=== PATIENT | male | born 1935 | race Caucasian/White ===

== ENCOUNTER 2017-08-15 21:43 | Emergency (ER) | payer MEDICARE, OTHER, SELFPAY ==
[2017-08-15 21:54] VITALS: BP 164/54; PULSE 81; RESP 18; O2SAT 98
[2017-08-15 21:59] VITALS: PULSE 81; RESP 18; O2SAT 98; BMI 27.4
--- NOTE | 2017-08-15 22:31 | ED_ITS ---
HPI - Back Pain/Injury General Chief Complaint: Back Pain/Injury Stated Complaint: BACK PAIN Time Seen by Provider: 08/15/17 22:31 Source: patient and family (Daughter) Mode of arrival: ambulatory Limitations: no limitations History of Present Illness HPI Narrative: The patient has chronic back pain. He has previously undergone lumbar surgery. He takes Tylenol Extra Strength for back pain. He is here with ongoing back pain, he is receiving no relief from the Tylenol. With the back pain there is no bladder or bowel incontinence. He has no lower extremity numbness or weakness. He has had no fever or other escalation of symptoms, other than pain. Related Data Home Medications Medication Instructions Recorded Confirmed potassium QDAY #0 04/30/17 07/19/17 Previous Rx's Medication Instructions Recorded fluoxetine 20 mg PO Q DAY #90 tab 02/04/17 furosemide [Lasix] 80 mg PO QDAY #5 tab 04/30/17 tramadol 2 tab PO BID #120 tab 04/30/17 ondansetron [Zofran ODT] 4 mg SUBLINGUAL Q6HP PRN #20 odt 06/15/17 donepezil 10 mg tablet 10 mg PO HS #90 tab 07/02/17 hydrocodone-acetaminophen [[place]] 1 tab PO Q4H PRN #15 tab 08/16/17 ondansetron [Zofran ODT] 4 mg PO Q6H PRN #15 tab 08/16/17 Allergies Allergy/AdvReac Type Severity Reaction Status Date / Time Sulfa (Sulfonamide AdvReac Intermediate hallucinati Verified 07/19/17 19:03 Antibiotics) ons zolpidem AdvReac Intermediate mood Verified 07/19/17 19:03 changes, makes him mean, confusion gabapentin AdvReac Mild I lose my Verified 07/19/17 19:03 memory Review of Systems Review of Systems All systems reviewed & are unremarkable except as noted in HPI and below Constitutional Denies chills, Denies fever(s) and Denies lethargy ENT Ears, Nose, Mouth, and Throat: Denies neck pain and Denies sore throat Cardiovascular Denies chest pain and Denies dyspnea Respiratory Denies dyspnea Gastrointestinal Gastrointestinal: Denies fecal incontinence, Denies diarrhea, Denies nausea and Denies vomiting Genitourinary Denies dysuria, Denies urinary incontinence and Denies urinary urgency Musculoskeletal Reports as per HPI, Denies neck pain and Denies numbness Integumentary/Breasts Denies pruritus, Denies erythema, Denies rash and Denies wounds Neurologic Denies focal weakness and Denies numbness [facility] Medical History Back pain (Acute) Dementia (Acute) Surgical History History of lumbar surgery (Acute) Social History Smoking Status: Former smoker Exam Initial Vital Signs Initial Vital Signs: Vital Signs Pulse Rate 81 08/15/17 21:54 Respiratory Rate 18 08/15/17 21:54 Blood Pressure 164/54 H 08/15/17 21:54 Pulse Oximetry 98 08/15/17 21:54 Const General: cooperative and well developed Nutritional Appearance: well nourished Orientation: alert, awake, oriented x3 and not confused HENMT Head: normocephalic and atraumatic Ears: external ears normal and TM's normal bilaterally Nose: external nose normal and No nasal discharge Face and sinus: sinuses nontender, face symmetric, no sinus tenderness and No dry mucous membranes Mouth: oral mucosae normal and moist mucous membranes Teeth and gingiva: dentition normal Throat: tonsils normal and uvula midline Neck Neck: full ROM and No tender Chest Chest: normal inspection of the chest Resp Effort & Inspection: normal respiratory effort, able to speak in complete sentences, no respiratory distress and no use of accessory muscles Auscultation: clear to auscultation bilaterally, no rales, no rhonchi and no wheezes Cardio Rate: regular rate Rhythm: regular rhythm Heart Sounds: no click, no gallops, no murmurs and no rubs Pulses: normal peripheral pulses GI Inspection: non-distended Palpation: soft, no hepatosplenomegaly, No guarding, No pulsatile mass and tender (In the right upper quadrant.) Auscultation: normal bowel sounds Back/Spine/Pelvis Thoracic/Lumbar Spine: other (Palpable tenderness over the central lower lumbar spine. No obvious deformity, no inflammatory changes.) Course Hospital Course: His daughter was concerned about his liver, she is concerned about how much Tylenol he uses. His Tylenol level and liver tests are normal. He has had no relief from tramadol. He will be discharged to home with [place]. He has occasional vomiting, Zofran will also be available. Orders Ordered: ED Orders 08/15/17 23:14 Acetaminophen Stat Complete Blood Count AUTO DIFF Stat Comprehensive Metabolic Panel Stat Lipase Stat Prothrombin Time INR Stat Sodium Chloride (Normal Saline 0.9%) 1,000 mls @ 150 mls/hr IV CONT HEATHER Last Admin: 08/15/17 23:13 Dose: Discontinued Medications Sodium Chloride (Normal Saline 0.9%) 1,000 mls @ 1,000 mls/hr IV BOLUS ONE Stop: 08/15/17 23:39 Last Admin: 08/15/17 23:12 Dose: 1,000 mls/hr Morphine Sulfate (Morphine) 4 mg IV NOW ONE Stop: 08/16/17 00:09 Last Admin: 08/16/17 00:16 Dose: 4 mg Ondansetron HCl (Zofran) 4 mg IV NOW ONE Stop: 08/15/17 22:41 Last Admin: 08/15/17 23:12 Dose: 4 mg Tramadol HCl (Ultram) 50 mg PO NOW ONE Stop: 08/15/17 22:53 Last Admin: 08/15/17 23:12 Dose: 50 mg Vital Signs - 8 hr 08/15/17 21:54 08/15/17 21:59 08/15/17 23:00 Pulse Rate 81 81 78 Respiratory Rate 18 18 Blood Pressure [Left Arm] 164/54 H 148/53 H Pulse Oximetry 98 98 96 MDM - Back Pain/Injury Lab Data Attestation: I reviewed the patient's lab results. Result diagrams: 08/15/17 23:14 08/15/17 23:14 Lab Results 08/15/17 08/15/17 08/15/17 Range/Units 23:14 23:14 23:14 WBC 10.5 (4.5-11.0) X10^3/uL RBC 3.96 L (4.5-5.9) X10^6/uL Hgb 13.5 (13.5-17.5) g/dL Hct 40.2 L (41-53) % MCV 101.5 H (80-100) fL MCH 34.1 H (26-34) PG MCHC 33.6 (30-36) % RDW 16.1 H (11.6-14.8) % Plt Count 288 (150-400) X10^3/uL Neut % (Auto) 85.1 H (50-75) % Lymph % (Auto) 8.7 L (25-40) % [place] % (Auto) 5.8 (3-14) % Eos % (Auto) 0.1 L (2-4) % Baso % (Auto) 0.3 (0-2) % Neut # (Auto) 8900 H (3019-3686) /uL PT 11.6 (10.1-12.7) SECONDS INR 1.1 (0.9-1.3) Sodium (137-145) mmol/L Potassium (3.4-5.1) mmol/L Chloride (98-107) mmol/L Carbon Dioxide (22-32) mmol/L BUN (9-20) mg/dL Creatinine (0.66-1.25) mg/dL Estimated GFR (>60) mL/min BUN/Creatinine Ratio (6-22) Glucose (80-110) mg/dL Calcium (8.4-10.2) mg/dL Total Bilirubin (0.2-1.3) mg/dL AST (17-59) IU/L ALT (21-72) IU/L Alkaline Phosphatase (38-126) U/L Total Protein (6.3-8.2) g/dL Albumin (3.5-5.0) g/dL Globulin (1.7-4.1) g/dL Albumin/Globulin Ratio (1.0-2.8) Lipase (23-300) U/L Acetaminophen 16 (10-30) ug/mL /14/18 Range/Units 23:14 WBC (4.5-11.0) X10^3/uL RBC (4.5-5.9) X10^6/uL Hgb (13.5-17.5) g/dL Hct (41-53) % MCV (80-100) fL MCH (26-34) PG MCHC (30-36) % RDW (11.6-14.8) % Plt Count (150-400) X10^3/uL Neut % (Auto) (50-75) % Lymph % (Auto) (25-40) % [place] % (Auto) (3-14) % Eos % (Auto) (2-4) % Baso % (Auto) (0-2) % Neut # (Auto) (1389-8124) /uL PT (10.1-12.7) SECONDS INR (0.9-1.3) Sodium 134 L (137-145) mmol/L Potassium 4.2 (3.4-5.1) mmol/L Chloride 103 (98-107) mmol/L Carbon Dioxide 12 L (22-32) mmol/L BUN 36 H (9-20) mg/dL Creatinine 1.40 H (0.66-1.25) mg/dL Estimated GFR 48.5 L (>60) mL/min BUN/Creatinine Ratio 25.7 H (6-22) Glucose 101 (80-110) mg/dL Calcium 9.3 (8.4-10.2) mg/dL Total Bilirubin 0.9 (0.2-1.3) mg/dL AST 21 (17-59) IU/L ALT 24 (21-72) IU/L Alkaline Phosphatase 42 (38-126) U/L Total Protein 7.1 (6.3-8.2) g/dL Albumin 3.9 (3.5-5.0) g/dL Globulin 3.2 (1.7-4.1) g/dL Albumin/Globulin Ratio 1.2 (1.0-2.8) Lipase 226 (23-300) U/L Acetaminophen (10-30) ug/mL Discharge Plan Departure Patient Disposition: Home, Self-Care Clinical Impression: Low back pain Instructions: DI for Low Back Pain Activity Restrictions/Additional Instructions: Tylenol extra-strength, 2 tablets every 6 hours for pain. [place] every 4-6 hours for added pain control when necessary. Zofran every 4 hours as needed for nausea control. Be sure you are drinking plenty of fluids and stay well hydrated. Follow up with your doctor for ongoing pain management. Prescriptions: New ondansetron [Zofran ODT] 4 mg tablet,disintegrating 4 mg PO Q6H PRN (Reason: nausea and vomiting) Qty: 15 RF: 0 hydrocodone-acetaminophen [[place]] 5-325 mg tablet 1 tab PO Q4H PRN (Reason: pain) Qty: 15 RF: 0 No Action fluoxetine 20 MG tablet 20 mg PO Q DAY Qty: 90 RF: 3 potassium 99 mg Tablet QDAY Qty: 0 RF: 0 furosemide [Lasix] 20 MG tablet 80 mg PO QDAY Qty: 5 RF: 0 tramadol 50 MG tablet 2 tab PO BID Qty: 120 RF: 3 ondansetron [Zofran ODT] 4 MG tablet,disintegrating 4 mg Sublingual Q6HP PRNQty: 20 RF: 0 donepezil [Aricept] 10 mg tablet 10 mg PO HS Qty: 90 RF: 3
[2017-08-15 23:00] VITALS: BP 148/53; PULSE 78; O2SAT 96
[2017-08-15] MEDS: SODIUM CHLORIDE 0.9% 1,000 ML 1000 ML IV (23:12)
[2017-08-15] MEDS: ONDANSETRON 4 MG/2 ML INJ IV (23:12)
[2017-08-15] MEDS: TRAMADOL 50 MG TABLET PO (23:12)
[2017-08-15 23:17] LABS: Add Manual Diff / Slide Review NO; Basophils Percent Auto 0.3 % (0-2); Eosinophils Percent Auto 0.1 % (2-4); Hematocrit 40.2 % (41-53); Hemoglobin 13.5 g/dL (13.5-17.5); Lymphocytes Percent Auto 8.7 % (25-40); Mean Corpuscular HGB Conc 33.6 % (30-36); Mean Corpuscular Hemoglobin 34.1 PG (26-34); Mean Corpuscular Volume 101.5 fL (80-100); Monocytes Percent Auto 5.8 % (3-14); Neutrophils Absolute Auto 8900 /uL (3000-5900); Neutrophils Percent Auto 85.1 % (50-75); Platelet Count 288 X10^3/uL (150-400); Red Blood Cell Count 3.96 X10^6/uL (4.5-5.9); Red Cell Distribution Width 16.1 % (11.6-14.8); White Blood Cell Count 10.5 X10^3/uL (4.5-11.0)
[2017-08-15 23:22] LABS: INR 1.1 (0.9-1.3); Prothrombin Time 11.6 SECONDS (10.1-12.7)
[2017-08-15 23:28] LABS: Alanine Aminotransferase 24 IU/L (21-72); Albumin 3.9 g/dL (3.5-5.0); Albumin Globulin Ratio 1.2 (1.0-2.8); Alkaline Phosphatase 42 U/L (38-126); Aspartate Aminotransferase 21 IU/L (17-59); BUN Creatinine Ratio 25.7 (6-22); Bilirubin Total 0.9 mg/dL (0.2-1.3); Blood Urea Nitrogen 36 mg/dL (9-20); Calcium 9.3 mg/dL (8.4-10.2); Carbon Dioxide 12 mmol/L (22-32); Chloride 103 mmol/L (98-107); Estimated Glomerular Filt Rate 48.5 mL/min (>60); Globulin 3.2 g/dL (1.7-4.1); Glucose 101 mg/dL (80-110); HEMOLYSIS < 15 (0-50); Potassium 4.2 mmol/L (3.4-5.1); Sodium 134 mmol/L (137-145); Total Protein 7.1 g/dL (6.3-8.2)
[2017-08-15 23:29] LABS: Lipase 226 U/L (23-300)
[2017-08-15 23:30] LABS: Acetaminophen 16 ug/mL (10-30)
[2017-08-16] MEDS: MORPHINE 4 MG/ML INJ IV ×2 (00:16→00:52)
[2017-08-16 00:55] VITALS: BP 142/59; PULSE 88; RESP 14; O2SAT 98
== END 2017-08-16 01:23 | disposition home or self-care (01) ==
PROVIDERS: Emergency Provider Emergency Medicine; Family Provider Family Medicine; PCP Family Medicine
DX: M54.5 Low back pain (principal)
CPT/HCPCS: 36415; 80053; 80329; 83690; 85025; 85610; 96361; 96374; 96375; 99283; 99284; G0480; J2270; J2405

== ENCOUNTER 2017-08-19 13:28 | Emergency (ER) | payer MEDICARE, OTHER, SELFPAY ==
[2017-08-19 13:40] VITALS: BP 138/60; PULSE 84; RESP 14; O2SAT 98
--- NOTE | 2017-08-19 13:47 | ED_ITS ---
HPI - Weakness General Chief complaint: Weakness Stated complaint: WEAK,NOT EATING/FLUIDS,BACK PAIN Time Seen by Provider: 08/19/17 13:46 Source: patient and family Mode of arrival: ambulatory Limitations: no limitations History of Present Illness HPI Narrative: 82-year-old male with a history of heart failure, dementia, chronic low back pain, and depression presenting with 1-2 weeks of increasing weakness, somnolence, and increasing back pain. He was prescribed [place] 4 days ago at an ER visit and his and daughter who are present at this time notes that it has not been helping his pain. 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 His daughter and feel that he needs to be hospitalized because he will not eat or drink and they are having difficulty caring for him at home. Nothing is relieving his back pain. He had a steroid injection recently with his neurosurgeon that has not provided any relief. He also recently had removal of hardware in the low back which was done to hopefully improve his pain , but unfortunately did not help. He has made comments to them that he thinks he will soon. He has not had fever or chills. He has not had a cough. He sleeps the majority of the day. Family denies any focal weakness. His memory is no worse or better than usual on his Aricept. He sees Dr. teixeira and when they called Dr. teixeira nurse, it was suggested to them that they come to the ER. Related Data Home Medications Medication Instructions Recorded Confirmed furosemide 80 mg PO DAILY 08/19/17 08/19/17 potassium chloride 20 meq PO DAILY 08/19/17 08/19/17 Previous Rx's Medication Instructions Recorded fluoxetine 20 mg PO Q DAY #90 tab 02/04/17 donepezil 10 mg tablet 10 mg PO HS #90 tab 07/02/17 hydrocodone-acetaminophen [[place]] 1 tab PO Q4H PRN #15 tab 08/16/17 ondansetron [Zofran ODT] 4 mg PO Q6H PRN #15 tab 08/16/17 Allergies Allergy/AdvReac Type Severity Reaction Status Date / Time Sulfa (Sulfonamide AdvReac Intermediate hallucinati Verified 07/19/17 19:03 Antibiotics) ons zolpidem AdvReac Intermediate mood Verified 07/19/17 19:03 changes, makes him mean, confusion gabapentin AdvReac Mild I lose my Verified 07/19/17 19:03 memory Review of Systems Review of Systems unobtainable due to mental condition [facility] Medical History Back pain (Acute) Dementia (Acute) Surgical History History of lumbar surgery (Acute) Social History Smoking Status: Former smoker Exam Initial Vital Signs Initial Vital Signs: Vital Signs Pulse Rate 84 08/19/17 13:40 Respiratory Rate 14 08/19/17 13:40 Blood Pressure 138/60 H 08/19/17 13:40 Pulse Oximetry 98 08/19/17 13:40 Const General: cooperative and well developed Nutritional Appearance: well nourished Orientation: alert, awake and not confused HENTX Head: normocephalic and atraumatic Ears: external ears normal and TM's normal bilaterally Nose: external nose normal and No nasal discharge Face and sinus: sinuses nontender, face symmetric, no sinus tenderness and No dry mucous membranes Mouth: oral mucosae normal and moist mucous membranes Teeth and gingiva: dentition normal Throat: tonsils normal and uvula midline Eyes General: appearance normal, both eyes and all related structures Eyelids: eyelids normal Conjunctivae: conjunctivae normal Sclera: sclerae normal Pupils: PERRL EOM: EOM intact bilaterally Neck Neck: normal visual inspection, trachea midline, No lymphadenopathy, No midline deformity and No JVD Lymphatic: No lymphedema Chest Chest: normal inspection of the chest Resp Effort & Inspection: normal respiratory effort, able to speak in complete sentences, no respiratory distress and no use of accessory muscles Auscultation: no rales, rhonchi and wheezes Cardio Rate: regular rate Rhythm: regular rhythm Heart Sounds: murmur Pulses: normal peripheral pulses GI Inspection: non-distended Palpation: soft, no hepatosplenomegaly, No guarding, No pulsatile mass and No tender Auscultation: normal bowel sounds Back/Spine/Pelvis Back: No CVA tenderness Cervical Spine: cervical ROM normal and No pain with cervical ROM Thoracic/Lumbar Spine: thoracic and lumbar spine normal to inspection Skin General: no rashes or lesions noted, No jaundice and No petechiae Neuro General: alert, gait normal and no focal motor deficits Speech: speech normal Extrem General: full ROM, no clubbing, cyanosis or edema, no pedal edema and no calf tenderness Psych Appearance: well kempt Mental Status: mental status grossly normal Attitude: cooperative Thought Content: normal and suicidality Judgment: judgment good Course Orders Ordered: ED Orders 08/19/17 13:54 Ammonia (NH3) Stat Complete Blood Count AUTO DIFF Stat Comprehensive Metabolic Panel Stat Thyroid Stimulating Hormone Stat Troponin I Stat 08/19/17 14:04 EKG-12 Lead Stat 08/19/17 14:06 XR chest 1V Stat 08/19/17 14:18 CT head/brain wo con Stat 08/19/17 15:30 Urine Microscopic Routine Discontinued Medications Acetaminophen (Tylenol) 650 mg PO NOW ONE Stop: 08/19/17 15:01 Last Admin: 08/19/17 15:09 Dose: 650 mg Reevaluation(s) Reevaluation #1: Patient has not had significant pain here but did receive some Tylenol at his request. I reviewed CT scan, chest x-ray, urinalysis, EKG, and blood work with patient, his , and his daughter. There is no acute abnormalities causing his weakness,. His heart is enlarged and in heart failure , but appears unchanged. I do not see fluid in the lungs. He does not appear dehydrated based on blood work and in fact his creatinine is better than previous. His troponin is slightly elevated but better than previous, and most likely related to chronic congestive heart failure as well as his report chronic kidney disease. He is not having chest pain or shortness of breath at this time. Consultations Consultation #1: Discussed care with his primary care provider who will see him on at 3:45 a.m.. Agrees that there is no need for admit at this time Time: 16:46 Vital Signs - 8 hr 08/19/17 13:40 08/19/17 14:57 Pulse Rate 84 85 Respiratory Rate 14 16 Blood Pressure 138/60 H Blood Pressure [Right Arm] 138/57 H Pulse Oximetry 98 98 MDM - Weakness Medical Records Attestation: I reviewed the patient's medical records. Lab Data Attestation: I reviewed the patient's lab results. Result diagrams: 08/19/17 13:54 08/19/17 13:54 Lab Results 08/19/17 08/19/17 08/19/17 Range/Units 13:54 13:54 13:54 WBC 8.7 (4.5-11.0) X10^3/uL RBC 4.13 L (4.5-5.9) X10^6/uL Hgb 14.1 (13.5-17.5) g/dL Hct 42.2 (41-53) % MCV 102.2 H (80-100) fL MCH 34.1 H (26-34) PG MCHC 33.4 (30-36) % RDW 17.2 H (11.6-14.8) % Plt Count 366 (150-400) X10^3/uL Neut % (Auto) 76.2 H (50-75) % Lymph % (Auto) 15.0 L (25-40) % [place] % (Auto) 7.6 (3-14) % Eos % (Auto) 0.7 L (2-4) % Baso % (Auto) 0.5 (0-2) % Neut # (Auto) 6600 H (8120-1037) /uL Sodium 139 (137-145) mmol/L Potassium 4.8 (3.4-5.1) mmol/L Chloride 104 (98-107) mmol/L Carbon Dioxide 18 L (22-32) mmol/L BUN 33 H (9-20) mg/dL Creatinine 1.20 (0.66-1.25) mg/dL Estimated GFR 58.0 L (>60) mL/min BUN/Creatinine Ratio 27.5 H (6-22) Glucose 118 H (80-110) mg/dL Calcium 9.8 (8.4-10.2) mg/dL Total Bilirubin 0.9 (0.2-1.3) mg/dL AST 29 (17-59) IU/L ALT 26 (21-72) IU/L Alkaline Phosphatase 58 (38-126) U/L Ammonia (9-30) umol/L Troponin I 0.092 H (0.01-0.034) ng/mL Total Protein 8.0 (6.3-8.2) g/dL Albumin 4.4 (3.5-5.0) g/dL Globulin 3.6 (1.7-4.1) g/dL Albumin/Globulin Ratio 1.2 (1.0-2.8) TSH 0.48 (0.47-4.68) uIU/mL Urine RBC (0-5/HPF) Urine WBC (0-5/HPF) Ur Squamous Epith Cells Amorphous Sediment Urine Bacteria (None) Hyaline Casts (None) Urine Mucus (Negative) Ur Culture Indicated? Micro UA Comment 08/19/17 08/19/17 Range/Units 13:54 15:30 WBC (4.5-11.0) X10^3/uL RBC (4.5-5.9) X10^6/uL Hgb (13.5-17.5) g/dL Hct (41-53) % MCV (80-100) fL MCH (26-34) PG MCHC (30-36) % RDW (11.6-14.8) % Plt Count (150-400) X10^3/uL Neut % (Auto) (50-75) % Lymph % (Auto) (25-40) % [place] % (Auto) (3-14) % Eos % (Auto) (2-4) % Baso % (Auto) (0-2) % Neut # (Auto) (8007-9125) /uL Sodium (137-145) mmol/L Potassium (3.4-5.1) mmol/L Chloride (98-107) mmol/L Carbon Dioxide (22-32) mmol/L BUN (9-20) mg/dL Creatinine (0.66-1.25) mg/dL Estimated GFR (>60) mL/min BUN/Creatinine Ratio (6-22) Glucose (80-110) mg/dL Calcium (8.4-10.2) mg/dL Total Bilirubin (0.2-1.3) mg/dL AST (17-59) IU/L ALT (21-72) IU/L Alkaline Phosphatase (38-126) U/L Ammonia < 9.0 L (9-30) umol/L Troponin I (0.01-0.034) ng/mL Total Protein (6.3-8.2) g/dL Albumin (3.5-5.0) g/dL Globulin (1.7-4.1) g/dL Albumin/Globulin Ratio (1.0-2.8) TSH (0.47-4.68) uIU/mL Urine RBC None seen (0-5/HPF) Urine WBC 0-1/hpf (0-5/HPF) Ur Squamous Epith Cells 0-1 /hpf Amorphous Sediment 1+ Urine Bacteria None seen (None) Hyaline Casts 0-1/lpf (None) Urine Mucus 1+ H (Negative) Ur Culture Indicated? Cult not indicated Micro UA Comment Not Reportable Imaging Data Chest x-ray: Radiologist's impression: PROCEDURE: XR CHEST 1V INDICATIONS: ams, weakness TECHNIQUE: One view of the chest was acquired. COMPARISON: [facility], , CHEST 1 VIEW, 03/16/2017, 15:31. [facility], , CHEST 1 VIEW, 04/22/2017, 6:45. FINDINGS: Surgical changes and devices: None. Lungs and pleura: No pleural effusions or pneumothorax. Lungs are clear. Mediastinum: Mediastinal contours appear normal. Heart size is moderate to severely enlarged. Bones and chest wall: No suspicious bony lesions. Overlying soft tissues appear unremarkable. IMPRESSION: 1. [id number] cardiomegaly. Dictated by: Ana Genao M.D. on 08/19/2017 at 15:24 Approved by: Ana Genao M.D. on 08/19/2017 at 15:25 CT scan - head: Radiologist's impression: PROCEDURE: CT HEAD/BRAIN WO CON INDICATIONS: ams, weaknesss TECHNIQUE: Noncontrast 4.5 mm thick angled axial sections acquired from the foramen magnum to the vertex, with coronal and sagittal reformats. For radiation dose reduction, the following was used: automated exposure control, adjustment of mA and/or kV according to patient size. COMPARISON: [facility], CT, HEAD WITHOUT CONTRAST, 05/19/2016, 19:27. FINDINGS: Image quality: Excellent. CSF spaces: Basal cisterns are patent. No extra-axial fluid collections. The ventricles are dilated but symmetric in size and shape. Brain: No intracranial bleeds or masses. Small lacunar infarcts in the left external capsule/basal ganglia. There is cerebral volume loss for age, with resultant ventricular and sulcal prominence. There are periventricular and deep white matter chronic small vessel ischemic changes. There is intracranial internal carotid artery and vertebral artery atherosclerosis. Skull and face: Calvarium and visualized facial bones appear intact, without suspicious lesions. Sinuses: Visualized sinuses and mastoids are clear. IMPRESSION: 1. No acute intracranial abnormalities. 2. Cerebral volume loss and chronic microvascular ischemic changes. 3. 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 4. Ventricular dilation is out of proportion to mildly prominent cerebral sulci. This finding may be secondary to central atrophy or normal pressure hydrocephalus. Dictated by: Ana Genao M.D. on 08/19/2017 at 14:25 Approved by: Ana Genao M.D. on 08/19/2017 at 14:29 ECG Data Attestation: I personally reviewed and interpreted this ECG as follows: Prior ECG tracings: available for review Interpretation: EKG performed at 1447 shows ectopic atrial rhythm, right bundle branch block, left ventricular hypertrophy, no ST elevation or depression noted. When compared with EKG from 04/22/2017 LVH criteria more prominent. MDM Narrative Medical decision making narrative: Patient has no acute intracranial findings on CT scan of the head although old strokes are noted. Family was surprised to find out about these. He does have significant atrophy consistent with his Alzheimer's dementia. His heart is enlarged consistent with his valvular disease and he is not a surgical candidate. He does not appear fluid overloaded or dehydrated. His vitals are stable. EKG shows no new findings. Troponin is slightly elevated but better than previous. Most likely related to chronic kidney disease and congestive heart failure chronically as he does not have chest pain or shortness of breath today. He does not appear to have uncontrolled back pain and has no tenderness to palpation. He is able to sit without any obvious discomfort. Labs show no evidence of infection or significant electrolyte imbalances. His urinalysis is negative for infection. Chest x-ray does not show evidence of infection. Overall I do not appreciate any cause for his anorexia that he has experienced the past 1-2 weeks. I do not feel he meets admission criteria and discussed with his primary care who will see him on . All family's questions were answered. Discharge Plan Departure Patient Disposition: Home, Self-Care Clinical Impression: Weakness, Anorexia Instructions: Anorexia-Adult Activity Restrictions/Additional Instructions: Thank you for trusting us with your 's care today. No new or dangerous findings were noted on his evaluation. Please follow up with his primary care provider. I have arranged an appointment for him at 3:45 a.m. on , . Return to the ER for new or worsening symptoms. Continue to encourage him to eat. Prescriptions: No Action fluoxetine 20 MG tablet 20 mg PO Q DAY Qty: 90 RF: 3 donepezil [Aricept] 10 mg tablet 10 mg PO HS Qty: 90 RF: 3 ondansetron [Zofran ODT] 4 mg tablet,disintegrating 4 mg PO Q6H PRN (Reason: nausea and vomiting) Qty: 15 RF: 0 hydrocodone-acetaminophen [[place]] 5-325 mg tablet 1 tab PO Q4H PRN (Reason: pain) Qty: 15 RF: 0 furosemide 80 mg tablet 80 mg PO DAILY RF: 0 potassium chloride 20 mEq tablet extended release 20 meq PO DAILY RF: 0
--- NOTE | 2017-08-19 14:06 | DI.RAD.S_ITS ---
PROCEDURE: XR CHEST 1V INDICATIONS: ams, weakness TECHNIQUE: One view of the chest was acquired. COMPARISON: [facility], CHEST 1 VIEW, 03/16/2017, 15:31. [facility], CHEST 1 VIEW, 04/22/2017, 6:45. FINDINGS: Surgical changes and devices: None. Lungs and pleura: No pleural effusions or pneumothorax. Lungs are clear. Mediastinum: Mediastinal contours appear normal. Heart size is moderate to severely enlarged. Bones and chest wall: No suspicious bony lesions. Overlying soft tissues appear unremarkable. IMPRESSION: 1. [id number] cardiomegaly. Dictated by: Ana Genao M.D. on 08/19/2017 at 15:24 Approved by: Ana Genao M.D. on 08/19/2017 at 15:25
[2017-08-19 14:14] LABS: Add Manual Diff / Slide Review NO; Basophils Percent Auto 0.5 % (0-2); Eosinophils Percent Auto 0.7 % (2-4); Hematocrit 42.2 % (41-53); Hemoglobin 14.1 g/dL (13.5-17.5); Mean Corpuscular HGB Conc 33.4 % (30-36); Mean Corpuscular Hemoglobin 34.1 PG (26-34); Mean Corpuscular Volume 102.2 fL (80-100); Monocytes Percent Auto 7.6 % (3-14); Neutrophils Absolute Auto 6600 /uL (3000-5900); Neutrophils Percent Auto 76.2 % (50-75); Platelet Count 366 X10^3/uL (150-400); Red Blood Cell Count 4.13 X10^6/uL (4.5-5.9); Red Cell Distribution Width 17.2 % (11.6-14.8); White Blood Cell Count 8.7 X10^3/uL (4.5-11.0)
--- NOTE | 2017-08-19 14:18 | DI.CT.S_ITS ---
PROCEDURE: CT HEAD/BRAIN WO CON INDICATIONS: ams, weaknesss TECHNIQUE: Noncontrast 4.5 mm thick angled axial sections acquired from the foramen magnum to the vertex, with coronal and sagittal reformats. For radiation dose reduction, the following was used: automated exposure control, adjustment of mA and/or kV according to patient size. COMPARISON: [facility], CT, HEAD WITHOUT CONTRAST, 05/19/2016, 19:27. FINDINGS: Image quality: Excellent. CSF spaces: Basal cisterns are patent. No extra-axial fluid collections. The ventricles are dilated but symmetric in size and shape. Brain: No intracranial bleeds or masses. Small lacunar infarcts in the left external capsule/basal ganglia. There is cerebral volume loss for age, with resultant ventricular and sulcal prominence. There are periventricular and deep white matter chronic small vessel ischemic changes. There is intracranial internal carotid artery and vertebral artery atherosclerosis. Skull and face: Calvarium and visualized facial bones appear intact, without suspicious lesions. Sinuses: Visualized sinuses and mastoids are clear. IMPRESSION: 1. No acute intracranial abnormalities. 2. Cerebral volume loss and chronic microvascular ischemic changes. 3. 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 4. Ventricular dilation is out of proportion to mildly prominent cerebral sulci. This finding may be secondary to central atrophy or normal pressure hydrocephalus. Dictated by: Ana Genao M.D. on 08/19/2017 at 14:25 Approved by: Ana Genao M.D. on 08/19/2017 at 14:29
[2017-08-19 14:19] LABS: Alanine Aminotransferase 26 IU/L (21-72); Albumin 4.4 g/dL (3.5-5.0); Albumin Globulin Ratio 1.2 (1.0-2.8); Alkaline Phosphatase 58 U/L (38-126); Aspartate Aminotransferase 29 IU/L (17-59); BUN Creatinine Ratio 27.5 (6-22); Bilirubin Total 0.9 mg/dL (0.2-1.3); Blood Urea Nitrogen 33 mg/dL (9-20); Calcium 9.8 mg/dL (8.4-10.2); Carbon Dioxide 18 mmol/L (22-32); Chloride 104 mmol/L (98-107); Globulin 3.6 g/dL (1.7-4.1); Glucose 118 mg/dL (80-110); HEMOLYSIS 26 (0-50); Potassium 4.8 mmol/L (3.4-5.1); Sodium 139 mmol/L (137-145)
[2017-08-19 14:20] LABS: Ammonia (NH3) < 9.0 umol/L (9-30)
[2017-08-19 14:31] LABS: Troponin I 0.092 ng/mL (0.01-0.034)
[2017-08-19 14:53] LABS: Thyroid Stimulating Hormone 0.48 uIU/mL (0.47-4.68)
[2017-08-19 14:57] VITALS: BP 138/57; PULSE 85; RESP 16; O2SAT 98
[2017-08-19] MEDS: ACETAMINOPHEN 325 MG TABLET 650 MG PO (15:09)
[2017-08-19 15:42] LABS: Bacteria Urine None Seen; RBC Urine None Seen (0-5/HPF)
[2017-08-19 15:52] LABS: Amorphous Sediment Urine 1+; Squamous Epithelial Cell Urine 0-1 /HPF; WBC Urine 0-1/HPF (0-5/HPF)
[2017-08-19 15:53] LABS: Culture Indicated Urine Cult Not Indicated; Hyaline Casts Urine 0-1/LPF; Mucus Urine 1+ (Negative)
[2017-08-19 16:47] VITALS: BP 141/54; PULSE 75; RESP 16
[2017-08-19 17:01] VITALS: BP 136/57; PULSE 84; RESP 18; O2SAT 100
[2017-08-19 17:13] VITALS: BP 136/57; PULSE 83; RESP 18; O2SAT 98
== END 2017-08-19 17:15 | disposition home or self-care (01) ==
PROVIDERS: Emergency Provider Emergency Medicine; Family Provider Family Medicine; PCP Family Medicine
DX: R63.0 Anorexia (principal); R53.1 Weakness; F03.90 Unspecified dementia, unspecified severity, without behavioral disturbance, psychotic disturbance, mood disturbance, and anxiety
CPT/HCPCS: 70450; 71045; 80053; 81003; 81015; 82140; 84443; 84484; 85025; 93005; 93010; 99283; 99285

== ENCOUNTER → 2017-08-26 14:33 | Outpatient (CLI) | payer MEDICARE, OTHER, SELFPAY ==
--- NOTE | 2017-08-26 14:35 | DI.CT.S_ITS ---
PROCEDURE: CT ABDOMEN PELVIS W CON INDICATIONS: Nausea, anorexia, weakness TECHNIQUE: After the administration of oral and intravenous contrast, 5 mm thick sections acquired from the diaphragms to the symphysis. 5 mm thick coronal and sagittal reformats were performed. For radiation dose reduction, the following was used: automated exposure control, adjustment of mA and/or kV according to patient size. COMPARISON: [facility], CT, ABDOMEN/PELVIS WITH CONTRAST, 09/13/2015, 10:52. FINDINGS: Image quality: Excellent. ABDOMEN: Lung bases: Lung bases are clear. Heart size is enlarged, as before. Solid organs: Liver is normal in size. The liver is diffusely hypodense suggesting hepatic steatosis.. Gallbladder is unremarkable. Biliary system is non-dilated. There is fatty atrophy of the pancreas. Spleen is normal in size and enhancement. No adrenal nodules. Kidneys are normal in size and enhancement, without hydronephrosis. A 1.4 cm in diameter intermediate density cyst is present off the lower pole of the right kidney which is similar in size to the study dated 09/13/15. Peritoneum and bowel: Stomach, small bowel, and colon loops are normal in overall caliber and wall thickness. There is marked circumferential wall thickening of the cecum. The appendix is thin walled. No discrete pericecal fat stranding or free fluid. There are scattered sigmoid diverticula. No evidence for diverticulitis. No free fluid or air. Nodes and vessels: No retroperitoneal or mesenteric adenopathy. Aorta and inferior vena cava are normal in caliber. There are scattered atheromatous calcifications throughout the aorta and iliac arteries bilaterally. Miscellaneous: No ventral hernias. PELVIS: Genitourinary: Bladder wall thickness is normal. Miscellaneous: No inguinal adenopathy. There are small bilateral fat containing inguinal hernias. Bones: No suspicious bony lesions. No vertebral body compression fractures. Fixation hardware at the right sacroiliac joint and lumbosacral junction is redemonstrated and appears intact. IMPRESSION: 1. Circumferential wall thickening of the distal cecum. There is no associated pericolonic fat stranding or free fluid. The findings are equivocal for acute colitis; however early colitis could be considered in the differential. Colonoscopy with visualization of the cecum is recommended as well to ensure there is no underlying neoplasm. 2. Normal appendix. Diverticulosis. No acute diverticulitis. 3. Hepatic steatosis. Dictated by: Kathleen Munoz M.D. on 08/26/2017 at 15:12 Approved by: Kathleen Munoz M.D. on 08/26/2017 at 15:28
== END ==
PROVIDERS: Family Provider Family Medicine; PCP Family Medicine; Visit Provider Family Medicine
DX: R11.0 Nausea (principal); R63.0 Anorexia; R53.1 Weakness; K76.0 Fatty (change of) liver, not elsewhere classified; K63.89 Other specified diseases of intestine
CPT/HCPCS: 74177

== ENCOUNTER 2017-09-11 11:52 | Emergency (ER) | payer MEDICARE, OTHER, SELFPAY ==
[2017-09-11 12:16] VITALS: BP 117/59; PULSE 95; RESP 16; TEMP 36.3; O2SAT 98
--- NOTE | 2017-09-11 14:11 | PC.NURSE ---
CASEY ANAYA CONTACTED TO ASSESS PICC LINE.
--- NOTE | 2017-09-11 14:57 | ED.ABDPAIN ---
HPI - Abdominal Pain General Chief Complaint: Abdominal Pain Stated Complaint: HANDS AND FEET TURNING PURPLE WHEN SITTING Time Seen by Provider: 09/11/17 14:35 Source: patient and family Mode of arrival: ambulatory Limitations: no limitations History of Present Illness HPI narrative: The patient is an 82-year-old male whose been having ongoing anorexia and abdominal pain for at least the last off 6 weeks but family states longer. He had workup and CT done here last month and follow up with his primary care physician. His daughter is worried that he has lost 50 lb over the past few weeks, and she would like something done to make him eat. He appears comfortable he has no complaints he does have a history of dementia and is a extremely poor historian. He is not sure why he does not eat. Sometimes he says it hurts his stomach. He has vomited up some bile that appears brown at times but no vomiting today. Of overall his not any worse today than it has been may just want a are looking for more answers. Related Data Home Medications Medication Instructions Recorded Confirmed furosemide 80 mg PO DAILY 08/19/17 09/11/17 potassium chloride 20 meq PO DAILY 08/19/17 09/11/17 tramadol 50 mg PO QID PRN 09/11/17 09/11/17 Previous Rx's Medication Instructions Recorded donepezil 10 mg tablet 10 mg PO HS #90 tab 07/02/17 hydrocodone-acetaminophen [[place]] 1 tab PO Q4H PRN #15 tab 08/16/17 fluoxetine 10 mg capsule 10 mg PO DAILY #30 cap 08/22/17 ondansetron 4 mg disintegrating 4 mg PO Q6H PRN #15 tab 08/22/17 tablet oxycodone 5 mg tablet 5 mg PO BID PRN #30 tab 08/27/17 Allergies Allergy/AdvReac Type Severity Reaction Status Date / Time Sulfa (Sulfonamide AdvReac Intermediate hallucinati Verified 08/22/17 16:07 Antibiotics) ons zolpidem AdvReac Intermediate mood Verified 08/22/17 16:07 changes, makes him mean, confusion gabapentin AdvReac Mild I lose my Verified 08/22/17 16:07 memory Review of Systems Review of Systems All systems reviewed & are unremarkable except as noted in HPI and below Constitutional Reports as per HPI, Reports fatigue, Denies frequent falls, Reports poor appetite, Reports weakness, Denies weight gain and Reports weight loss Cardiovascular Denies chest pain, Denies irregular heart rhythm, Denies lightheadedness, Denies palpitations and Denies orthopnea Gastrointestinal Gastrointestinal: Reports as per HPI Musculoskeletal Denies back pain, Denies muscle weakness, Denies numbness and Denies tingling Neurologic Denies frequent falls, Denies numbness, Denies tingling and Reports weakness Endocrine Reports fatigue and Denies palpitations PFS Social History Smoking Status: Former smoker Exam Initial Vital Signs Initial Vital Signs: Vital Signs Temperature 97.4 F L 09/11/17 12:16 Pulse Rate 95 H 09/11/17 12:16 Respiratory Rate 16 09/11/17 12:16 Blood Pressure 117/59 L 09/11/17 12:16 Pulse Oximetry 98 09/11/17 12:16 GENERAL: Alert well-appearing elderly male in no acute distress HEENT: Head atraumatic,EOMI, pupils reactive, face symmetric, moist mucous membranes CARDIOVASCULAR: Regular rate and rhythm without murmurs, rubs or gallops. RESPIRATORY: Breath sounds equal bilaterally, no wheezes rales or rhonchi. ABDOMEN: Soft, nontender. Normoactive bowel sounds all 4 quadrants. No guarding or rebound. EXTREMITIES: Normal range of motion, no clubbing or edema. Neurovascularly intact NEUROLOGICAL: Alert and oriented x4.Normal gait and speech. Cranial nerves II through XII grossly intact. [employer] strength equal bilaterally moving all extremities SKIN: Warm, dry, no laceration, no petechiae, no rashes or lesions. Course Orders Ordered: ED Orders 09/11/17 15:00 EKG-12 Lead Stat 09/11/17 15:01 XR abdomen min 2V Stat 09/11/17 15:19 Complete Blood Count AUTO DIFF Stat Comprehensive Metabolic Panel Stat Lipase Stat Discontinued Medications Sodium Chloride (Normal Saline 0.9%) 1,000 mls @ 150 mls/hr IV CONT HEATHER Last Infusion: 09/11/17 17:10 Dose: 0 mls/hr Admin: 09/11/17 15:30 Dose: 150 mls/hr Vital Signs - 8 hr 09/11/17 12:16 09/11/17 16:11 09/11/17 17:29 Temperature 97.4 F L Pulse Rate 95 H 89 94 H Respiratory Rate 16 16 17 Blood Pressure 117/59 L Blood Pressure [Right Arm] 124/51 H 130/58 H Pulse Oximetry 98 99 99 MDM - Abdominal Pain Lab Data Result diagrams: 09/11/17 15:19 09/11/17 15:19 Lab Results 09/11/17 09/11/17 Range/Units 15:19 15:19 WBC 8.9 (4.5-11.0) X10^3/uL RBC 3.75 L (4.5-5.9) X10^6/uL Hgb 13.2 L (13.5-17.5) g/dL Hct 39.0 L (41-53) % MCV 103.8 H (80-100) fL MCH 35.3 H (26-34) PG MCHC 34.0 (30-36) % RDW 17.2 H (11.6-14.8) % Plt Count 527 H (150-400) X10^3/uL Neut % (Auto) 78.4 H (50-75) % Lymph % (Auto) 12.1 L (25-40) % Bond % (Auto) 7.5 (3-14) % Eos % (Auto) 1.4 L (2-4) % Baso % (Auto) 0.6 (0-2) % Neut # (Auto) 7000 H (5057-8510) /uL Sodium 135 L (137-145) mmol/L Potassium 4.8 (3.4-5.1) mmol/L Chloride 99 (98-107) mmol/L Carbon Dioxide 18 L (22-32) mmol/L BUN 49 H (9-20) mg/dL Creatinine 1.50 H (0.66-1.25) mg/dL Estimated GFR 44.8 L (>60) mL/min BUN/Creatinine Ratio 32.7 H (6-22) Glucose 107 (80-110) mg/dL Calcium 9.8 (8.4-10.2) mg/dL Total Bilirubin 0.8 (0.2-1.3) mg/dL AST 23 (17-59) IU/L ALT 16 L (21-72) IU/L Alkaline Phosphatase 66 (38-126) U/L Total Protein 7.7 (6.3-8.2) g/dL Albumin 4.2 (3.5-5.0) g/dL Globulin 3.5 (1.7-4.1) g/dL Albumin/Globulin Ratio 1.2 (1.0-2.8) Lipase 219 (23-300) U/L Imaging Data Abdominal x-ray: Radiologist's impression: PROCEDURE: XR ABDOMEN MIN 2V INDICATIONS: vomiting, not eating, weakness, ab pain TECHNIQUE: 2 views of the abdomen were acquired. COMPARISON: [facility], CT, CT ABDOMEN PELVIS W CON, 08/26/2017, 14:55. FINDINGS: Surgical changes and devices: Postsurgical changes of the lumbosacral spine and right sacroiliac joint. Bowel: No pneumoperitoneum. The bowel gas pattern is normal. Soft tissues: No masses; visualized solid organ contours appear normal in size. No suspicious abdominal calcifications. Cardiomegaly. Bones: No suspicious bony abnormalities. IMPRESSION: Nonspecific bowel gas pattern, no sign of intestinal obstruction or perforation. Cardiomegaly. Dictated by: Ronald Robles M.D. on 09/11/2017 at 15:39 ECG Data Interpretation: He had a CT done on 08/26/2017. He appears to be slightly dehydrated with elevated BUN today. He did receive some IV fluids. Discussed with daughter at length in regards to goals of care and possible feeding tube. Initially she thought they would do a feeding tube. He may actually have some form of gastritis which hurts his stomach. I recommended Tums prior to feeding along with a clear liquid diet which included Jell-O applesauce broth etc. Have a meeting tomorrow primary care provider to discuss goals of care I discussed all findings with the patient and daughter, Education has been performed regarding treatment plan, diagnosis, warning signs and symptoms and all concerns have been addressed. Verbally agree with and understood all of the above. Discharge Plan Departure Patient Disposition: Home, Self-Care Clinical Impression: Gastritis, Anorexia Discharge Date/Time: 09/11/17 17:30 Interventions: ED Discharge Assessment Last Done: 09/11/17 17:29 Instructions: DI for Gastritis Activity Restrictions/Additional Instructions: *You have been diagnosed with gastritis, anorexia *What to do: I recommend taking or antacid medicine 30 min prior to attempt of food. I also recommended Jell-O, broth, popsicles, Gatorade or something with sugar and electrolytes to help with nutrition and hydration *Continue to take medications as directed *Follow up with your primary care provider tomorrow as previously scheduled *Return to ER if you should have any new, worsening or concerning symptoms Prescriptions: No Action donepezil [Aricept] 10 mg tablet 10 mg PO HS Qty: 90 RF: 3 oxycodone 5 mg tablet 5 mg PO BID PRN (Reason: pain) Qty: 30 RF: 0 ondansetron [Zofran ODT] 4 mg tablet,disintegrating 4 mg PO Q6H PRN (Reason: nausea and vomiting) Qty: 15 RF: 3 fluoxetine 10 mg capsule 10 mg PO DAILY Qty: 30 RF: 0 hydrocodone-acetaminophen [[place]] 5-325 mg tablet 1 tab PO Q4H PRN (Reason: pain) Qty: 15 RF: 0 furosemide 80 mg tablet 80 mg PO DAILY RF: 0 potassium chloride 20 mEq tablet extended release 20 meq PO DAILY RF: 0 tramadol 50 mg tablet 50 mg PO QID PRN (Reason: Pain, Moderate) RF: 0 Referrals: Gayle Duffy MD [Primary Care Provider] -
--- NOTE | 2017-09-11 15:01 | DI.RAD.S_ITS ---
PROCEDURE: XR ABDOMEN MIN 2V INDICATIONS: vomiting, not eating, weakness, ab pain TECHNIQUE: 2 views of the abdomen were acquired. COMPARISON: [facility], CT, CT ABDOMEN PELVIS W CON, 08/26/2017, 14:55. FINDINGS: Surgical changes and devices: Postsurgical changes of the lumbosacral spine and right sacroiliac joint. Bowel: No pneumoperitoneum. The bowel gas pattern is normal. Soft tissues: No masses; visualized solid organ contours appear normal in size. No suspicious abdominal calcifications. Cardiomegaly. Bones: No suspicious bony abnormalities. IMPRESSION: Nonspecific bowel gas pattern, no sign of intestinal obstruction or perforation. Cardiomegaly. Dictated by: Ronald Robles M.D. on 09/11/2017 at 15:39 Approved by: Ronald Robles M.D. on 09/11/2017 at 15:40
[2017-09-11] MEDS: SODIUM CHLORIDE 0.9% 1,000 ML 150 ML IV (15:30)
[2017-09-11 15:31] LABS: Add Manual Diff / Slide Review NO; Basophils Percent Auto 0.6 % (0-2); Eosinophils Percent Auto 1.4 % (2-4); Hemoglobin 13.2 g/dL (13.5-17.5); Lymphocytes Percent Auto 12.1 % (25-40); Mean Corpuscular Hemoglobin 35.3 PG (26-34); Mean Corpuscular Volume 103.8 fL (80-100); Monocytes Percent Auto 7.5 % (3-14); Neutrophils Absolute Auto 7000 /uL (3000-5900); Neutrophils Percent Auto 78.4 % (50-75); Platelet Count 527 X10^3/uL (150-400); Red Blood Cell Count 3.75 X10^6/uL (4.5-5.9); Red Cell Distribution Width 17.2 % (11.6-14.8); White Blood Cell Count 8.9 X10^3/uL (4.5-11.0)
--- NOTE | 2017-09-11 15:39 | PC.NURSE ---
Addendum entered by Brittany Cooper R.N. 09/11/17 15:40: Original Note: patient has a raised red rash to the left abdomen that extends to the left side of this back. he reports that this rash itches but denies any pain
[2017-09-11 15:51] LABS: Alanine Aminotransferase 16 IU/L (21-72); Albumin 4.2 g/dL (3.5-5.0); Albumin Globulin Ratio 1.2 (1.0-2.8); Alkaline Phosphatase 66 U/L (38-126); Aspartate Aminotransferase 23 IU/L (17-59); BUN Creatinine Ratio 32.7 (6-22); Bilirubin Total 0.8 mg/dL (0.2-1.3); Blood Urea Nitrogen 49 mg/dL (9-20); Calcium 9.8 mg/dL (8.4-10.2); Carbon Dioxide 18 mmol/L (22-32); Chloride 99 mmol/L (98-107); Estimated Glomerular Filt Rate 44.8 mL/min (>60); Globulin 3.5 g/dL (1.7-4.1); Glucose 107 mg/dL (80-110); HEMOLYSIS 16 (0-50); Lipase 219 U/L (23-300); Potassium 4.8 mmol/L (3.4-5.1); Sodium 135 mmol/L (137-145); Total Protein 7.7 g/dL (6.3-8.2)
[2017-09-11 16:11] VITALS: BP 124/51; PULSE 89; RESP 16; O2SAT 99
[2017-09-11 17:29] VITALS: BP 130/58; PULSE 94; RESP 17; O2SAT 99
== END 2017-09-11 17:30 | disposition home or self-care (01) ==
PROVIDERS: Emergency Provider Emergency Medicine; Family Provider Family Medicine; PCP Family Medicine
DX: R10.9 Unspecified abdominal pain (principal)
CPT/HCPCS: 36591; 74019; 80053; 83690; 85025; 93005; 99283

== ENCOUNTER → 2017-09-11 17:43 | Outpatient (CLI) | payer MEDICARE, OTHER, SELFPAY ==
[2017-09-11 18:58] LABS: Prostate Specific Antigen Scrn 1.39 ng/mL (0.1-4.0)
== END ==
PROVIDERS: Family Provider Family Medicine; PCP Family Medicine; Visit Provider Family Medicine
DX: E86.0 Dehydration (principal)
CPT/HCPCS: 36415; G0103

== ENCOUNTER 2017-09-13 21:07 | Inpatient (IN) | payer MEDICARE, OTHER, SELFPAY ==
[2017-09-13 21:23] VITALS: BP 112/55; PULSE 104; RESP 16; TEMP 36.3; O2SAT 97
--- NOTE | 2017-09-13 21:28 | DI.CT.S_ITS ---
PROCEDURE: CT HEAD/BRAIN WO CON INDICATIONS: mental status change, weakness, fall TECHNIQUE: Noncontrast 4.5 mm thick angled axial sections acquired from the foramen magnum to the vertex, with coronal and sagittal reformats. For radiation dose reduction, the following was used: automated exposure control, adjustment of mA and/or kV according to patient size. COMPARISON: [facility], CT, CT HEAD/BRAIN WO CON, 08/19/2017, 14:04. FINDINGS: Image quality: Excellent. CSF spaces: Basal cisterns are patent. No extra-axial fluid collections. The ventricles are symmetric in size and shape. Brain: No intracranial bleeds or masses. There is cerebral volume loss for age, with resultant ventricular and sulcal prominence. There are periventricular and deep white matter chronic small vessel ischemic changes. There is intracranial internal carotid artery atherosclerosis. Skull and face: Calvarium and visualized facial bones appear intact, without suspicious lesions. Sinuses: Visualized sinuses and mastoids are clear. IMPRESSION: No acute intracranial process. Dictated by: Joe Leahy M.D. on 09/14/2017 at 10:28 Approved by: Joe Leahy M.D. on 09/14/2017 at 10:30
[2017-09-13 21:37] LABS: INR 1.1 (0.9-1.3); Prothrombin Time 11.9 SECONDS (10.1-12.7)
[2017-09-13 21:40] LABS: PTT Partial Thromboplastin Tim 30 SECONDS (26.4-36.2)
[2017-09-13 21:42] LABS: BUN Creatinine Ratio 28.6 (6-22); Blood Urea Nitrogen 40 mg/dL (9-20); Calcium 9.9 mg/dL (8.4-10.2); Carbon Dioxide 18 mmol/L (22-32); Chloride 100 mmol/L (98-107); Estimated Glomerular Filt Rate 48.5 mL/min (>60); Glucose 120 mg/dL (80-110); HEMOLYSIS < 15 (0-50); Potassium 4.3 mmol/L (3.4-5.1); Sodium 133 mmol/L (137-145)
[2017-09-13] MEDS: SODIUM CHLORIDE 0.9% 1,000 ML 150 ML IV (21:51)
[2017-09-13 22:53] VITALS: BP 132/55; PULSE 89; RESP 18; O2SAT 100
--- NOTE | 2017-09-13 23:25 | PC.NURSE ---
Attempted to reconcile med list. Pts family does not have a list with them.
[2017-09-14] VITALS (8 sets, daily range): BP systolic 108–140; BP diastolic 50–60; PULSE 81–104; RESP 16–20; TEMP 36.3–36.8; O2SAT 95–100; BMI 24.3
--- NOTE | 2017-09-14 01:06 | ED_ITS ---
HPI - Weakness General Chief complaint: Weakness Stated complaint: Weakness, GLF Time Seen by Provider: 09/13/17 21:25 Source: patient, family and EMS Mode of arrival: EMS Limitations: no limitations History of Present Illness HPI Narrative: 82-year-old male known well to myself and staff presents by EMS for evaluation of generalized weakness, confusion and inability to ambulate. Over the course of the day the patient had become increasingly weak and eventually fell onto the ground which required EMS assistance to get him up. Per his legs are not working. Medics are very concerned that the patient is unable to ambulate or safely get around and the current living situation MD Complaint: generalized weakness, lack of energy and difficulty walking Onset (ago): hour(s) Duration: constant Location: generalized Migration: none Severity: mild Exacerbating factors: none Context: new medication Related Data Home Medications Medication Instructions Recorded Confirmed furosemide 80 mg PO DAILY 08/19/17 09/11/17 potassium chloride 20 meq PO DAILY 08/19/17 09/11/17 tramadol 50 mg PO QID PRN 09/11/17 09/11/17 Previous Rx's Medication Instructions Recorded donepezil 10 mg tablet 10 mg PO HS #90 tab 07/02/17 hydrocodone-acetaminophen [[place]] 1 tab PO Q4H PRN #15 tab 08/16/17 fluoxetine 10 mg capsule 10 mg PO DAILY #30 cap 08/22/17 ondansetron 4 mg disintegrating 4 mg PO Q6H PRN #15 tab 08/22/17 tablet oxycodone 5 mg tablet 5 mg PO BID PRN #30 tab 08/27/17 Allergies Allergy/AdvReac Type Severity Reaction Status Date / Time Sulfa (Sulfonamide AdvReac Intermediate hallucinati Verified 08/22/17 16:07 Antibiotics) ons zolpidem AdvReac Intermediate mood Verified 08/22/17 16:07 changes, makes him mean, confusion gabapentin AdvReac Mild I lose my Verified 08/22/17 16:07 memory Review of Systems Review of Systems All systems reviewed & are unremarkable except as noted in HPI and below Constitutional Denies chills, Denies fever(s), Denies lethargy and Reports weakness Eyes Denies change in vision, Denies eye discharge, Denies irritation and Denies loss of vision ENT Ears, Nose, Mouth, and Throat: Denies change in voice, Denies neck pain and Denies sore throat Cardiovascular Denies chest pain, Denies irregular heart rhythm, Denies lightheadedness, Denies palpitations, Denies dyspnea, Denies dyspnea on exertion and Denies orthopnea Respiratory Denies cough, Denies dyspnea, Denies dyspnea on exertion and Denies wheezing Gastrointestinal Gastrointestinal: Denies abdominal pain, Denies change in bowel habits, Denies diarrhea, Denies nausea and Denies vomiting Genitourinary Denies hematuria, Denies flank pain, Denies urinary incontinence and Denies urinary urgency Musculoskeletal Reports muscle weakness and Denies neck pain Integumentary/Breasts Denies pruritus, Denies erythema, Reports rash and Denies wounds Neurologic Reports confusion, Denies loss of vision and Reports weakness Psychiatric Denies anxiety, Reports confusion, Denies depression, Denies homicidal ideation and Denies suicidal ideation Endocrine Denies palpitations Hematologic/Lymphatic Denies easy bruising Allergic/Immunologic Denies wheezing PFSH Social History household members: spouse and family Smoking Status: Former smoker alcohol intake: former Exam Narrative Exam Narrative: Pleasantly confused 82-year-old male appears not quite at his baseline per prior visits Initial Vital Signs Initial Vital Signs: Vital Signs Temperature 97.3 F L 09/13/17 21:23 Pulse Rate 104 H 09/13/17 21:23 Respiratory Rate 16 09/13/17 21:23 Blood Pressure 112/55 L 09/13/17 21:23 Pulse Oximetry 97 09/13/17 21:23 Const General: cooperative and well developed Nutritional Appearance: well nourished Orientation: alert, awake, oriented x3 and not confused [facility] Head: normocephalic and atraumatic Ears: external ears normal and TM's normal bilaterally Nose: external nose normal and No nasal discharge Face and sinus: sinuses nontender, face symmetric, no sinus tenderness and No dry mucous membranes Mouth: oral mucosae normal and moist mucous membranes Teeth and gingiva: dentition normal Throat: tonsils normal and uvula midline Eyes General: appearance normal, both eyes and all related structures Eyelids: eyelids normal Conjunctivae: conjunctivae normal Sclera: sclerae normal Pupils: PERRL EOM: EOM intact bilaterally Neck Neck: normal visual inspection, trachea midline, No lymphadenopathy, No midline deformity and No JVD Lymphatic: No lymphedema Chest Chest: normal inspection of the chest Resp Effort & Inspection: normal respiratory effort, able to speak in complete sentences, no respiratory distress and no use of accessory muscles Auscultation: clear to auscultation bilaterally, no rales, no rhonchi and no wheezes Cardio Rate: regular rate Rhythm: regular rhythm Heart Sounds: no click, no gallops, no murmurs and no rubs Pulses: normal peripheral pulses GI Inspection: non-distended Palpation: soft, no hepatosplenomegaly, No guarding, No pulsatile mass and No tender Auscultation: normal bowel sounds Back/Spine/Pelvis Back: No CVA tenderness Cervical Spine: cervical ROM normal and No pain with cervical ROM Thoracic/Lumbar Spine: thoracic and lumbar spine normal to inspection Skin General: no rashes or lesions noted, No jaundice and No petechiae Rashes: rashes noted (Very faint rash on back and right flank) Neuro General: alert, oriented x3, gait normal and no focal motor deficits Speech: speech normal Extrem General: full ROM, no clubbing, cyanosis or edema, no pedal edema and no calf tenderness Psych Appearance: well kempt Mental Status: mental status grossly normal Attitude: cooperative Thought Content: normal and suicidality Judgment: judgment good Scores NIH Stroke Scale Level of Conciousness: Not alert, but arousable by minor stim to obey, answer or respond Ask month/age: Answers both questions correctly. Open/close eyes, close hand: Performs both tasks correctly Best gaze horizontal: Normal Visual triplett: No visual loss Facial palsy: Normal symetrical movement Left arm drift: No drift for full 10 sec Right arm drift: No drift for full 10 sec Left leg drift: No drift for full 10 sec Right leg drift: No drift for full 10 sec Limb ataxia: Absent Sensory on face/arms/legs: Normal, no sensory loss Best language: No aphasia, normal Dysarthria: Normal Extinction or inattention: No abnormality Total NIH Stroke scale score: 1 Course Orders Ordered: ED Orders 09/13/17 20:55 Basic Metabolic Panel Stat Partial Thromboplastin Time Stat Prothrombin Time INR Stat 09/13/17 21:28 CT head/brain wo con Stat Urine Drug Screen, Rapid Stat EKG-12 Lead Stat Discontinued Medications Sodium Chloride (Normal Saline 0.9%) 1,000 mls @ 150 mls/hr IV CONT HEATHER Last Infusion: 09/14/17 00:36 Dose: 0 mls/hr Infusion: 09/14/17 00:36 Dose: 150 mls/hr Admin: 09/13/17 21:51 Dose: 150 mls/hr Consultations Consultation #1: Dr. Gayle Duffy MD to accept this patient on her service. She requests no telemetry for IV fluids Consultation #2: Eventually family mentioned that the patient was given Benadryl 75 mg p.o. to treat the intensely pruritic rash on his back. He became quite obtunded after this but family states he was acting a bit odd even before the medications raising the question of a multifactorial presentation Vital Signs - 8 hr 09/13/17 21:23 09/13/17 22:53 Temperature 97.3 F L Pulse Rate 104 H 89 Respiratory Rate 16 18 Blood Pressure 112/55 L Blood Pressure [Left Arm] 132/55 H Pulse Oximetry 97 100 MDM - Weakness Lab Data Result diagrams: 09/13/17 20:55 Lab Results 09/13/17 09/13/17 Range/Units 20:55 20:55 PT 11.9 (10.1-12.7) SECONDS INR 1.1 (0.9-1.3) APTT 30 (26.4-36.2) SECONDS Sodium 133 L (137-145) mmol/L Potassium 4.3 (3.4-5.1) mmol/L Chloride 100 (98-107) mmol/L Carbon Dioxide 18 L (22-32) mmol/L BUN 40 H (9-20) mg/dL Creatinine 1.40 H (0.66-1.25) mg/dL Estimated GFR 48.5 L (>60) mL/min BUN/Creatinine Ratio 28.6 H (6-22) Glucose 120 H (80-110) mg/dL Calcium 9.9 (8.4-10.2) mg/dL Discharge Plan Departure Patient Disposition: Admitted as Observation Clinical Impression: Accidental overdose, Acute confusion Discharge Date/Time: 09/14/17 01:20 Interventions: ED Discharge Assessment Last Done: 09/14/17 00:33 Admit Date/Time: 09/14/17 00:28 Admit Provider: Gayle Duffy
--- NOTE | 2017-09-14 04:11 | PC.ADMIT ---
Addendum entered by Sally Galicia R.N. 09/14/17 06:57: 0600- pt had 558+ urine in bladder scan. called MD and she ordered to straight cath. told pt that we had to catheter him. he was upset and tried to void using bsc one more time with dribbles again- straight cath performed by Monica ANAYA. 400 ml out, [place] in color. tolerated well. did grimace, deep breathing exercises and held my hand during procedure. pt stated he wasn't in pain after. Pt stated that the last time he had a catheter he hurt really badly afterwards. will continue to monitor. Original Note: Admission Note: Pt admitted. Able to move self from stretcher to bed, did get short of breath and asked for a minute to get oriented. Pt A&Ox3. but forgets that he says things and repeats himself. VSS. Pt on RA. ambulates with 1 assist- very slow and grabs furniture. Pt up to void multiple times and only goes a few drops at a time. will alert MD. Pt compliant with admission assessment.s oriented to room and hospital procedures. unable to do med rec as pt/family did not bring list in with them. Pt has call light and belongings within reach. will continue to monitor pt for safety. bed alarm on. side rails upx3.
--- NOTE | 2017-09-14 06:45 | PC.NURSE ---
Pt unable to void during shift more than a few mL. Bladder scanned. Per MD order, straight cath placed. 400mL output. [place] color. Pt tolerated procedure.
[2017-09-14] MEDS: DOCUSATE 100 MG CAPSULE PO ×2 (10:05→20:12)
[2017-09-14] MEDS: ENOXAPARIN 40 MG/0.4 ML SYRINGE SUBCUT (10:05)
[2017-09-14] MEDS: FUROSEMIDE 40 MG TABLET 80 MG PO (10:05)
--- NOTE | 2017-09-14 10:47 | P.HP_ITS ---
History of Present Illness Date Patient Seen: 09/14/17 Time Patient Seen: 09:00 Chief complaint: Weakness, GLF Narrative: Patient is an 82-year-old gentleman well known to me with a history of dementia which has been progressive, and bicuspid aortic valve with aortic regurgitation resulting in cardiomyopathy and congestive heart failure who presented to the emergency room yesterday after family reported that he had been increasingly agitated. Family, prior to presentation had given him 3 Benadryl for a rash as well as 1 Xanax unknown dosing. Patient is not prescribed the Xanax, nevertheless, upon presentation he was unable to stand and was speaking in garbled speech. In addition, patient has lost about 60 lb over the last 6 weeks for unclear reasons. Patient describes feeling nauseous. Reports that occasionally he is able to eat, but has to spit the food out for unclear reasons. Interestingly, he has been able to drink liquids and has been able to maintain hydration despite Lasix 80 mg daily. Patient canela CT abdomen and pelvis in late August of 2017 which demonstrated some thickening around the cecum, but no clear mass, and plans are in place for him to have a PET scan. Patient did have a history of prostate cancer, with radioactive seed placement. Patient's PSA is elevated above baseline by nearly double at this point from 2016. Patient also has dementia, and is unclear what the patients baseline is at this point. However, we were tapering Prozac from 20 mg to 10 mg and Prozac was stopped 2 days ago. Family reports he was increasingly agitated and somehow different when he awoke yesterday, and the family administered the Xanax. Patient also developed a rash of unclear etiology, but it appears that he has not been bathing regularly due to deconditioning. In addition, patient has been permitted to take his medications such as Tylenol. Due to his underlying dementia, it is difficult to know what exactly he has been taking and what amounts. Patient has ongoing low back pain and does have [place] as well as tramadol but it is unclear if he is even taking this. Family was only able to provide limited information. No evidence of fever or chills. Family reports that he has not vomited in the last few days. Patient History Medical History Aortic regurgitation (Chronic) Aortic stenosis (Chronic) Back pain (Chronic) Bicuspid aortic valve (Chronic) Dementia (Chronic) RBBB (Chronic) Radiculopathy with lower extremity symptoms (Chronic) Spine pain, lumbosacral (Chronic) DVT (deep venous thrombosis) (Resolved 2010) Prostate cancer (Resolved 2010) Family & Social History Social History: household members spouse,family Prior Living Arrangements House Safety & Behavioral: Feels Safe in Current Yes Environment Been Physically Hurt or No Threatened By a Person Suicidal Ideation Description None Suicide Plan Description No Plan Tobacco & Substance use: Smoking Status Former smoker alcohol intake former Substance Use Type does not use Meds Home Medications Medication Instructions Recorded Confirmed Type donepezil 10 mg tablet 10 mg PO HS #90 tab 07/02/17 09/14/17 Rx hydrocodone-acetaminophen [[place]] 1 tab PO Q4H PRN #15 tab 08/16/17 09/14/17 Rx furosemide 80 mg PO DAILY 08/19/17 09/14/17 History potassium chloride 20 meq PO DAILY 08/19/17 09/14/17 History fluoxetine 10 mg capsule 10 mg PO DAILY #30 cap 08/22/17 09/14/17 Rx ondansetron 4 mg disintegrating 4 mg PO Q6H PRN #15 tab 08/22/17 09/14/17 Rx tablet oxycodone 5 mg tablet 5 mg PO BID PRN #30 tab 08/27/17 09/14/17 Rx tramadol 50 mg PO QID PRN 09/11/17 09/14/17 History Allergies Allergy/AdvReac Type Severity Reaction Status Date / Time Sulfa (Sulfonamide AdvReac Intermediate hallucinati Verified 08/22/17 16:07 Antibiotics) ons zolpidem AdvReac Intermediate mood Verified 08/22/17 16:07 changes, makes him mean, confusion gabapentin AdvReac Mild I lose my Verified 08/22/17 16:07 memory Review of Systems Review of Systems The patient is not a reliable historian however, All systems reviewed & are unremarkable except as noted in HPI and below Exam Vital Signs (past 8 hours): GENERAL: Well-developed well-nourished man, with definite change from my previous outpatient experience with him. HEENT: Normocephalic, atraumatic, pupils equal and reactive to light and accommodation. Extraocular movements are intact. Neck supple, no lymphadenopathy. LUNG: Clear to auscultation bilaterally. No wheeze or crackles or rhonchi. No increased work in breathing. CV: Regular rate and rhythm. Patient has both systolic and diastolic murmurs consistent with his aortic stenosis, and cardiomegaly Abdomen: Soft, nontender, no mass. AFFECT: Patient is slurring his speech, he is clearly confused above his baseline. Not combative. SKIN: A few papules present on his abdomen. Patient does not complain of pruritus until his and daughter came in. - 09/14/17 07:39 09/14/17 09:12 Temperature 97.3 F L 97.3 F L Pulse Rate 81 81 Respiratory Rate 16 16 Blood Pressure 124/60 H 124/60 H Pulse Oximetry 98 98 Oxygen Delivery Method Room Air Objective Labs Result Diagrams: 09/13/17 20:55 Labs: Laboratory Results - last 24 hr 09/13/17 09/13/17 20:55 20:55 PT 11.9 INR 1.1 APTT 30 Sodium 133 L Potassium 4.3 Chloride 100 Carbon Dioxide 18 L BUN 40 H Creatinine 1.40 H Estimated GFR 48.5 L BUN/Creatinine Ratio 28.6 H Glucose 120 H Calcium 9.9 Assessment & Plan (1) CHF (congestive heart failure): Current visit: No Status: Chronic (2) Chronic back pain: Qualifiers: Back pain location: low back pain Back pain laterality: right Sciatica presence: without sciatica Sciatica laterality: Qualified Code(s): M54.5 - Low back pain; G89.29 - Other chronic pain Current visit: No Status: Chronic (3) Delirium due to dissociative drug: Current visit: Yes Status: Acute (4) Dementia: Current visit: Yes Status: Acute (5) Aortic stenosis due to bicuspid aortic valve: Current visit: Yes Status: Chronic (6) Accidental overdose: Qualifiers: Encounter type: initial encounter Qualified Code(s): T50.901A - Poisoning by unspecified drugs, medicaments and biological substances, accidental (unintentional), initial encounter Current visit: Yes Status: Acute (7) Rash: Current visit: Yes Status: Acute Plan: Assessment/Plan Narrative: 1. Acute metabolic encephalopathy acute on chronic dementia. - Benadryl, Xanax, and other unknown, remains confused - possible withdrawal symptoms from Prozac - clearly altered at this point. Patient is not a candidate for IV fluids at this point due to his underlying congestive heart failure. I do think time, and some close evaluation will help to see if the patient will clear however, at this point he is not. My suspicion of a CVA is quite low. I do think he would benefit from inpatient admission and continued monitoring due to unknown medications exposure. 2. Congestive heart failure/cardiomegaly/aortic stenosis with aortic regurgitation - continue Lasix, patient is not a candidate for other medications at this point , as he has previously become quite hypotensive on beta blockers and Carlos inhibitor. 3. Rash. - recommend that the family stop scratching him. Very mild at this point. - Pepcid IV, Claritin 4. Urinary retention. Likely secondary to Benadryl. Required catheterization. Continue to monitor. Patient does not have a Delaney catheter at this point. 5. Anorexia of unclear etiology. - suspect may be related to Prozac use, which is why it was stopped. - monitor diet in house - possible recurrence of prostate cancer with PET scan pending. - patient really unable to provide much information. Consider barium swallow 6. Chronic low back pain. - patient has not mentioned today. [place] is available would like to use this sparingly. 7. Admission status: Due to severity of delirium, and potential multiple unknown medication exposures will admit to inpatient. 8. Physical therapy/occupational therapy 9. DVT prophylaxis: Lovenox 10. Code status: DNR
[2017-09-14] MEDS: LORATADINE 10 MG TABLET PO (11:42)
[2017-09-14 13:18] LABS: Add Manual Diff / Slide Review NO; Basophils Percent Auto 0.9 % (0-2); Eosinophils Percent Auto 7.7 % (2-4); Hematocrit 33.9 % (41-53); Hemoglobin 11.5 g/dL (13.5-17.5); Lymphocytes Percent Auto 12.4 % (25-40); Mean Corpuscular HGB Conc 33.8 % (30-36); Mean Corpuscular Hemoglobin 34.8 PG (26-34); Mean Corpuscular Volume 102.9 fL (80-100); Monocytes Percent Auto 10.4 % (3-14); Neutrophils Absolute Auto 5500 /uL (3000-5900); Neutrophils Percent Auto 68.6 % (50-75); Platelet Count 419 X10^3/uL (150-400); Red Blood Cell Count 3.29 X10^6/uL (4.5-5.9); Red Cell Distribution Width 17.3 % (11.6-14.8)
[2017-09-14 13:27] LABS: Alanine Aminotransferase 31 IU/L (21-72); Albumin 3.5 g/dL (3.5-5.0); Albumin Globulin Ratio 1.3 (1.0-2.8); Alkaline Phosphatase 66 U/L (38-126); Aspartate Aminotransferase 32 IU/L (17-59); BUN Creatinine Ratio 29.2 (6-22); Bilirubin Total 0.6 mg/dL (0.2-1.3); Blood Urea Nitrogen 38 mg/dL (9-20); Calcium 9.3 mg/dL (8.4-10.2); Carbon Dioxide 22 mmol/L (22-32); Chloride 102 mmol/L (98-107); Estimated Glomerular Filt Rate 52.9 mL/min (>60); Globulin 2.8 g/dL (1.7-4.1); Glucose 127 mg/dL (80-110); HEMOLYSIS < 15 (0-50); Potassium 4.1 mmol/L (3.4-5.1); Sodium 135 mmol/L (137-145); Total Protein 6.3 g/dL (6.3-8.2)
--- NOTE | 2017-09-14 14:10 | PT.IIE ---
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) Rash and other nonspecific skin eruption (09/14/17) Poisoning by unspecified drugs, medicaments and biological substances, accidental (unintentional), initial encounter (09/14/17) Surgical History (Last Reviewed 08/22/17 @ 18:24 by Gayle Duffy MD) History of lumbar surgery (Resolved 2014) Medical History (Last Reviewed 09/14/17 @ 10:52 by Gayle Duffy MD) Aortic regurgitation (Chronic) Aortic stenosis (Chronic) Back pain (Chronic) Bicuspid aortic valve (Chronic) Dementia (Chronic) RBBB (Chronic) Radiculopathy with lower extremity symptoms (Chronic) Spine pain, lumbosacral (Chronic) DVT (deep venous thrombosis) (Resolved 2010) Prostate cancer (Resolved 2010) Physical Therapy Inpatient Evaluation/Re-Eval M1 PT/OT-IP Prior Functional Status Start: 09/14/17 15:00 Freq: NEEDED Status: Active Protocol: Document 09/14/17 14:10 [facility] (Rec: 09/14/17 16:56 [facility] [id number]) Medical Review Prior Functional Status Medical History Reviewed Yes Communication to able to make needs known. Moderately confused, pleasant and joking throughout. Family present reported that his speech has changed but they were unable to elaborate. Mobility and Gait Per family report pt previously I with in house ambulation, 0 AD. Activities of Daily Living and IADL's Per family report pt previously I with all bADLs including bathing, toileting, dressing, and grooming. Pt with recent decline in initiation of self-care, reportedly hasn't bathed in weeks despite encouragement. Pt with recent decline in appetite and willingness to eat/drink despite encouragement. Prior Functional Level (Other details) Pt receives support for all IADLs (including medication management) from spouse. Spouse reports he frequently asks for his Tylenol and takes it regularly, but that she often gives him Vitamin C instead. 3 dogs in home. Adult children nearby and supportive. Social History Household Members spouse family Living Arrangements House Number of Floors (Floors) One Floor Number of Stairs To Enter/Railing? 1 [place] Home Environment Standard Height Toilet Walk in Shower Home Equipment Shower Seat without Backrest Employment Status Retired M2 PT-IP Current Condition Start: 09/14/17 16:43 Freq: Status: Active Protocol: Document 09/14/17 14:10 [facility] (Rec: 09/14/17 16:56 [facility] [id number]) Physical Therapy Current Condition Current Condition Evaluation Date 09/14/17 Treatment Diagnosis confusion, falls, impaired activity tolerance Onset Date 09/14/17 M3 PT-IP Subjective Start: 09/14/17 16:43 Freq: Status: Active Protocol: Document 09/14/17 14:10 [facility] (Rec: 09/14/17 16:56 [facility] [id number]) Subjective Physical Therapy Visit Type Type Initial Evaluation Visit Start Time 13:50 Visit Stop Time 14:10 Total Visit Minutes 20 Notes OT in room, in room @ time of evaluation. Number of SUBMARINE OPERATOR Visits 0 Physical Therapy Visit Comments Patient Comments Pt notes that he just gets tired easily. Therapy Pain Assessment Pain Present Pain Present Denied Pain M4 PT-IP Mobility and Gait Start: 09/14/17 16:43 Freq: Status: Active Protocol: Document 09/14/17 14:10 [facility] (Rec: 09/14/17 16:56 [facility] [id number]) PT-Transfer Assessment Sit to and From Stand Sit to and from Stand Minimal Assistance 1 Person Assistance Use of Upper Extremities Equipment Transfer Assistive Device Gait Belt Front Wheeled Walker Transfers Transfer Destination Chair Transfer Technique Stand Step Pivot Transfer Ability Level of Assist Minimal Assistance 1 Person Assistance Comments Mobility Comments VC for safety, FWW management and min assist. Gait Assessment Gait Gait Assistance Required: Minimum Assistance Distance (Feet) (feet) 35 Assistive Devices Assistive Device Gait Belt Front Wheeled Walker Gait Deviations General Gait Pattern Decreased Stride Length Decreased Feet Clearance Flexed Trunk Wide Based Gait Factors Limiting Gait Function Factors Limiting Gait Function Decreased Activity Tolerance Decreased Strength Difficulty Following Directions Poor Balance Poor Safety Awareness Comments Gait Comments moderate VC for FWW positioning and occasional manual assistance to avoid object and to prevent FWW from going too far anterior. PT-Balance Assessment Sitting Balance and Reactions Static Sitting Balance Ability Good Dynamic Sitting Balance Ability Fair Standing Balance and Reactions Static Standing Balance Ability Fair Dynamic Standing Balance Ability Poor Device Used FWW M5 PT-IP Objective Assessments Start: 09/14/17 16:43 Freq: Status: Active Protocol: Document 09/14/17 14:10 [facility] (Rec: 09/14/17 16:56 [facility] [id number]) Orientation Orientation/Cognition Level of Alertness Confusional State Language Function Ability Hard of Hearing Safety Awareness Decreased Safety Awareness Memory Description Short Term Impaired Clinical Data Associate Impaired Coordination Assessment Gross Coordination Gross Coordination WNL Assessment Heel on Carrera Test Normal Performance Muscle Tone Muscle Tone WNL Yes M6 PT-IP Treatment Start: 09/14/17 16:43 Freq: Status: Active Protocol: Document 09/14/17 14:10 [facility] (Rec: 09/14/17 16:56 [facility] [id number]) Physical Therapy Treatment Education Education Provided Safety M7 PT-IP Assessment and Plan Start: 09/14/17 16:43 Freq: Status: Active Protocol: Document 09/14/17 14:10 [facility] (Rec: 09/14/17 16:56 [facility] [id number]) PT Summary Assessment and Plan Potential Rehabilitation Potential Good Status of Condition at Evaluation Evolving Summary Impairments Strength Balance Cognition Transfers Gait Activity Tolerance Assessment Summary Pt requires moderate verbal cuing for safety with gait and mobility, and tends to have increased trunk flexion with gait when fatigued. Pt requires manual assistance to perform sit<->stand. His , had recent surgical intervention due to cancerous lesion of the foot, is NWB on the affected leg, therefore is not able to assist pt physically. Due to cognitive impairment, it has been difficult to get pt to be compliant using and AD at home . At this time, pt is not safe to return home. He may benefit from SNF rehabilitation if he is unable to return to baseline function, as he has had 2+ falls recently at home and is still at high risk for falls in the future. If pt's confusion and impairments are solely contributed to pharmaceutical involvement, he may be able to d/c back home but must achieve below established goals. Goals Bed Mobility Goal Independent Transfer Goal Independent Gait Goal Standby Assistance Front Wheel Walker Gait Distance 150 Other Goals up/down 1 step with FWW and SBA. Days to Meet Goals 3 Frequency of Treatment Frequency Of Treatment Once a Day Treatment Plan Physical Therapy Treatment Plan Bed Mobility Training Transfer Training Gait Training Therapeutic Exercise Balance Retraining Discharge Planning Neuromuscular Re-ed Other Recommendations and Next Treatment gait, step up training when Focus appropriate. Recommendations To Nursing Amount of Assist Needed 1 Person Assist Discharge Recommendations PT Discharge Recommendations Home with Assistance Home Health SNF Rehab Other Discharge Recommendations home with assist and HH vs. SNF Equipment Needed for Home Before FWW Discharge
--- NOTE | 2017-09-14 15:17 | OT.IP.EVAL ---
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) Rash and other nonspecific skin eruption (09/14/17) Poisoning by unspecified drugs, medicaments and biological substances, accidental (unintentional), initial encounter (09/14/17) Past Medical History (Last Reviewed 09/14/17 @ 10:52 by Gayle Duffy MD) Aortic regurgitation (Chronic) Aortic stenosis (Chronic) Back pain (Chronic) Bicuspid aortic valve (Chronic) Dementia (Chronic) RBBB (Chronic) Radiculopathy with lower extremity symptoms (Chronic) Spine pain, lumbosacral (Chronic) DVT (deep venous thrombosis) (Resolved 2010) Prostate cancer (Resolved 2010) Surgical History (Last Reviewed 08/22/17 @ 18:24 by Gayle Duffy MD) History of lumbar surgery (Resolved 2014) Occupational Therapy Inpatient Evaluation/Re-Eval M1 PT/OT-IP Prior Functional Status Start: 09/14/17 15:00 Freq: NEEDED Status: Active Protocol: Document 09/14/17 02:08 [facility] (Rec: 09/14/17 15:17 [facility] [id number]) Medical Review Prior Functional Status Medical History Reviewed Yes Communication to able to make needs known. Moderately confused, pleasant and joking throughout. Family present reported that his speech has changed but they were unable to elaborate. Mobility and Gait Per family report pt previously I with in house ambulation, 0 AD. Activities of Daily Living and IADL's Per family report pt previously I with all bADLs including bathing, toileting, dressing, and grooming. Pt with recent decline in initiation of self-care, reportedly hasn't bathed in weeks despite encouragement. Pt with recent decline in appetite and willingness to eat/drink despite encouragement. Prior Functional Level (Other details) Pt receives support for all IADLs (including medication management) from spouse. Spouse reports he frequently asks for his Tylenol and takes it regularly, but that she often gives him Vitamin C instead. 3 dogs in home. Adult children nearby and supportive. Social History Household Members spouse family Living Arrangements House Number of Floors (Floors) One Floor Number of Stairs To Enter/Railing? 1 [place] Home Environment Standard Height Toilet Walk in Shower Home Equipment Shower Seat without Backrest Employment Status Retired M2 OT-IP Current Condition Start: 09/14/17 15:00 Freq: Status: Active Protocol: Document 09/14/17 02:08 [facility] (Rec: 09/14/17 15:17 [facility] [email or web address]) Occupational Therapy Current Condition Current Condition Evaluation Date 09/14/17 Treatment Diagnosis confusion, falls Diagnosis Onset Date 09/14/17 M3 OT- IP Subjective and Pain Start: 09/14/17 15:00 Freq: Status: Active Protocol: Document 09/14/17 02:08 [facility] (Rec: 09/14/17 15:17 [facility] [id number]) OT- Subjective Occupational Therapy Visit Type Type Initial Evaluation Visit Start Time 01:35 Visit Stop Time 02:08 Total Visit Minutes 33 Notes Pt agreeable to OT eval, daughter and spouse present. OT Pain Assessment Pain When Pain Assessed At Rest Pain Present Pain Present Denied Pain M4 OT- IP ADL's Start: 09/14/17 15:00 Freq: Status: Active Protocol: Document 09/14/17 02:08 [facility] (Rec: 09/14/17 15:17 [facility] [id number]) OT [id number] General Evaluation Self-Feeding Ability Independent OT ADL-Dressing General Eval Upper Body Dressing Ability Standby Assistance Lower Body Dressing Ability Standby Assistance Comments OT Dressing Comments Pt able to don/doff socks while seated in recliner, no A needed. OT ADL-Toileting General Evaluation Toileting Ability Standby Assistance Comments OT Toileting Comments Pt able to amb to/from bathroom and transfer to/from standard toilet with FWW and SBA. Pt needed cues to complete turn for accuracy, did not correctly security screener distance and attempted to sit next to the toilet. M6 OT- IP Functional Cognition Start: 09/14/17 15:00 Freq: Status: Active Protocol: Document 09/14/17 02:08 [facility] (Rec: 09/14/17 15:17 [facility] [id number]) Cognitive Factors Limiting Selfcare Function Cognitive Ability Level of Alertness Alert Confusional State Attention Span Ability Unable to Sustain Attention Ability to Follow Commands Able to Follow One Step Commands Memory Description Immediate Intact Short Term Impaired Administrative Personal Assistant Impaired Safety Awareness Decreased Recall of Precautions Decreased Ability to Apply Precautions Underestimates Need for Assistance Problem Solving Ability Needs Assist to Identify Solutions OT- Vision and Hearing OT- Hearing Assessment OT- Hearing Assessment Hearing Impaired Right Ear Impaired Left Ear Impaired Use of Hearing Aids M7 OT- IP Mobility and Balance Start: 09/14/17 15:00 Freq: Status: Active Protocol: Document 09/14/17 02:08 [facility] (Rec: 09/14/17 15:17 [facility] [email or web address]) OT- Bed Mobility Assessment Rolling Level of Assistance Standby Assistance Supine to Sit Supine to Sit Assist Moderate Assistance Scooting Scooting Up and Down in Bed Minimal Assistance OT-Transfer Assessment Sit to and From Stand Sit to and from Stand Minimal Assistance Transfers Transfer Ability Minimal Assistance Technique Transfer Destination Bed Chair Toilet Devices Transfer Assistive Devices Gait Belt Front Wheeled Walker OT- Gait Assessment Comments Gait Ability Comments Pt ambulating with flexed posture, difficulty remaining erect. Pt reported max fatigue after short walk bed->toilet- >chair. 02 saturation great throughout. M8 OT- IP Objective Assessments Start: 09/14/17 15:00 Freq: Status: Active Protocol: Document 09/14/17 02:08 [facility] (Rec: 09/14/17 15:17 [facility] [id number]) OT Gross Range of Motion Upper Extremity Range of Motion Assessment Within Functional Limits OT Strength Upper Extremity Strength Assessment Within Functional Limits OT- Coordination Assessment Upper Extremity Finger Tapping Test Within Functional Limits M9 OT- IP Assessment and Plan Start: 09/14/17 15:00 Freq: Status: Active Protocol: Document 09/14/17 02:08 [facility] (Rec: 09/14/17 15:17 [facility] [id number]) OT Summary Assessment and Plan Potential Rehabilitation Potential Excellent Analytic Complexity at Evaluation Low Summary OT Impairments Strength Balance Functional Cognition Assessment Summary Pt presenting with increased fatigue and confusion over reported baseline, with resulting increased fall risk. Pt currently needing A of 1 for all functional mobility, minimal A for self-care at time of eval. Pt with good likelihood of progress to near PLOF, and anticipate pt d/c to home when medically cleared . Goals Toileting Goal Standby Assistance Toilet Transfer Goal Standby Assistance Treatment Plan OT Treatment Plan ADL Training Functional Mobility Patient/Family Education Discharge Planning Discharge Recommendations OT Discharge Recommendations Home with Assistance
--- NOTE | 2017-09-14 15:50 | PC.NURSE ---
Addendum entered by Aneesh Mejia R.N. 09/14/17 16:19: left bedside and states she will return shortly on luis shift. Patient is resting in bed at this time peacefully. Patient is easily awaken, A&O to self, place and situation. Denies any pain at this time. Patient denies any needs at this time other then resting. Call light w/in reach, bed in low pos. alarm active. Encouraging PO fluid intake. Original Note: Deidra w/ care management in room speaking w/ patient and at this time.
--- NOTE | 2017-09-14 17:13 | CM.DANOTE ---
DCP/Assessment: Reviewed chart. Patient is a 82yr old male initially admitted under OBS status today after GLF. Patient changed to inpatient status today as well by Dr. Duffy. Primary payor is 1)Medicare 2)[facility]. PCP is Dr. Duffy. Received verbal referral from Dr. Duffy re: d/c planning for patient. Per MD, patient lives at home with spouse/Romina. Patient with multiple visits to the Emergency Room and 's office for dementia related issues. Dr. Olivia's reports that family unable to care for him at home. She is recommending SNF for rehab and long-term planning. ROBOTIC MACHINE TENDER [employer]ODUCTION met with patient's spouse/Romina and daughter/Love on speaker phone explained CM/SW role. Spouse reports that once patient gets stronger she has no problem taking him home. Patient has lost significant amount of weight over the last few months and scan scheduled for next week. Spouse concerned that patient may have had a stroke. At this time notified spouse and family that ROBOTIC MACHINE TENDER [employer] would continue to follow case. Spouse and daughter requesting to meet with ROBOTIC MACHINE TENDER [employer]ODUCTION on Saturday09-16-17 once medical plan becomes more clear. ROBOTIC MACHINE TENDER [employer]ODUCTION agreed to meet with spouse and family at 1:00pm. In addition, PT/OT evaluations pending. If SNF needed family would like [facility]. Discussed briefly long-term plan? Daughter requesting application for long-term care through [facility]. Provided spouse with application. Discussed possibility of memory care, SNF, HH, and hospice as being possible d/c planning options. Requested spouse bring copy of DPOA and Advanced Directive to [facility] to scan for EMR. Spouse reports that she is primary DPOA and next is daughter Love. P: Pending. Will request referral be made to [facility] on Saturday09-15-17. ROBOTIC MACHINE TENDER [employer] did not leave message on [facility] admit line with referral. Family meeting scheduled for 1:00pm on Saturday to discuss next steps. RN notified and will give message to Dr. Duffy. EMIGDIO Coburn Discharge Planning/Care Management CM Discharge Assessment Start: 09/14/17 17:11 Freq: Status: Active Protocol: Document 09/14/17 17:11 KJS (Rec: 09/14/17 17:13 KJS [id number]) Discharge Planning Assessment Assigned Glass Block Installer EMIGDIO/Darlyn History Provided By Patient Family Member Has Patient been admitted in last 30 No days? Prior Living Arrangements House Household Members spouse family Type of transporation used prior to Relies on Others admit Independent with ADL's No Is patient alert and oriented? No Needs Assistance With Bathing Eating Grooming Meal Prep Managing Medications Caregiver for Another No Patient Discharge Plan Description Halfway Facility Referrals Initiated Halfway Discharge Plan Halfway Facility Review Status In Process Next Review Type Continued Stay Review
[2017-09-14] MEDS: ACETAMINOPHEN 325 MG TABLET 650 MG PO (20:12)
[2017-09-15] VITALS (10 sets, daily range): BP systolic 110–148; BP diastolic 49–85; PULSE 69–112; RESP 14–20; TEMP 36.3–37.3; O2SAT 91–100
[2017-09-15] MEDS: ACETAMINOPHEN 325 MG TABLET 650 MG PO ×3 (00:11→20:53)
--- NOTE | 2017-09-15 05:54 | PC.NURSE ---
Shift note Pt has remained in bed throughout shift. No voids. Bladder scan 346mL.
--- NOTE | 2017-09-15 08:13 | CM.DPC ---
DCP Cont: Per OT yesterday, recommending Home with assist. Per PT yesterday, HH vs SNF. SW called [facility] and provided new referral and they will review today as this is family's first choice if SNF needed. Plan: SW to follow closely for further PT/OT assess today towards determining Home with family and HH vs SNF rehab. [facility] reviewing. Family meeting scheduled tomorrow, Saturday 09/16, for further d/c planning discussion. EMIGDIO Garduno
[2017-09-15] MEDS: FUROSEMIDE 40 MG TABLET 80 MG PO (08:56)
[2017-09-15] MEDS: ENOXAPARIN 40 MG/0.4 ML SYRINGE SUBCUT (08:57)
[2017-09-15] MEDS: DOCUSATE 100 MG CAPSULE PO ×2 (08:57→20:53)
--- NOTE | 2017-09-15 10:50 | PM.PN.1 ---
Subjective Date Patient Seen: 09/15/17 Time Patient Seen: 10:50 Interval history: Overall, patient seems to be doing somewhat better. Has had some significant urinary retention with 500 mL in his bladder with no sensation of having to void. Did require straight cathing last night. The patient ate his entire breakfast this morning. He does seem to be much more alert. However, he continues to be very weak. He is in good spirits. Exam Vital Signs (past 8 hours): GENERAL: Well-developed well-nourished but thin man lying in hospital bed HEENT: Normocephalic, atraumatic, pupils equal and reactive to light and accommodation. Extraocular movements are intact. Neck supple, no lymphadenopathy. LUNG: Clear to auscultation bilaterally. No wheeze or crackles or rhonchi. No increased work in breathing. CV: Regular rate and rhythm. No murmurs rubs or gallops. AFFECT: Alert and oriented to self and place and people. Uncertain what date it is. Conversational and appropriate. - 09/15/17 06:07 09/15/17 07:45 09/15/17 08:30 Temperature 97.9 F 98.6 F Pulse Rate 71 69 Respiratory Rate 16 14 Blood Pressure 133/61 H 110/49 L Pulse Oximetry 98 100 96 Oxygen Delivery Method Room Air Objective Labs Result Diagrams: 09/14/17 13:10 09/14/17 13:10 Labs: Laboratory Results - last 24 hr 09/14/17 09/14/17 13:10 13:10 WBC 8.0 RBC 3.29 L Hgb 11.5 L Hct 33.9 L MCV 102.9 H MCH 34.8 H MCHC 33.8 RDW 17.3 H Plt Count 419 H Neut % (Auto) 68.6 Lymph % (Auto) 12.[address] [place] % (Auto) 10.4 Eos % (Auto) 7.7 H Baso % (Auto) 0.9 Neut # (Auto) 5500 Sodium 135 L Potassium 4.1 Chloride 102 Carbon Dioxide 22 BUN 38 H Creatinine 1.30 H Estimated GFR 52.9 L BUN/Creatinine Ratio 29.2 H Glucose 127 H Calcium 9.3 Total Bilirubin 0.6 AST 32 ALT 31 Alkaline Phosphatase 66 Total Protein 6.3 Albumin 3.5 Globulin 2.8 Albumin/Globulin Ratio 1.3 Assessment & Plan Plan: Assessment/Plan Narrative: 1. Acute metabolic encephalopathy with acute on chronic dementia. - ingestion of Benadryl, Xanax, and other unknown, dramatically improved - suspect agitation secondary to withdrawal of Prozac. - patient not entirely back to baseline at this point although he is getting much better. 2. Congestive heart failure/cardiomegaly/aortic stenosis with aortic regurgitation - continue Lasix, patient is not a candidate for other medications at this point, as he has previously become quite hypotensive on beta blockers and Carlos inhibitor. 3. Rash. - seems to resolve. However will continue Pepcid and Claritin 4. Urinary retention. Which is persistent with a postvoid residual of greater than 300. - Delaney catheter if persists - start Flomax 5. Anorexia of unclear etiology. - suspect may be related to Prozac use, which is why it was stopped. - monitor diet in house - possible recurrence of prostate cancer with PET scan pending. - patient really unable to provide much information. Consider barium swallow 6. Chronic low back pain. - patient has not mentioned today. [email or web address] is available would like to use this sparingly. 6.1. Significant weight loss. May be related to Prozac use however, this is not entirely clear. Prozac stopped and patient does seem to have improved appetite. Patient has CT scan which demonstrated thickening around the colon at as an outpatient several weeks ago. Awaiting PET scan for follow-up eval of malignancy. Family declines colonoscopy. 6.2. Anemia. Unclear etiology. Will continue to trend. Likely secondary to patient's poor nutrition and weight loss versus malignancy 6.3. Chronic kidney disease. Improving with improved hydration. 7. Admission status: Due to severity of delirium, and potential multiple unknown medication exposures will admit to inpatient. 8. Physical therapy/occupational therapy 9. DVT prophylaxis: Lovenox 10. Code status: DNR 11. Disposition: [facility] will certainly require [facility] for [facility].
--- NOTE | 2017-09-15 10:57 | P.PN_ITS ---
Subjective Date Patient Seen: 09/15/17 Time Patient Seen: 10:50 Interval history: Overall, patient seems to be doing somewhat better. Has had some significant urinary retention with 500 mL in his bladder with no sensation of having to void. Did require straight cathing last night. The patient ate his entire breakfast this morning. He does seem to be much more alert. However, he continues to be very weak. He is in good spirits. Exam Vital Signs (past 8 hours): GENERAL: Well-developed well-nourished but thin man lying in hospital bed HEENT: Normocephalic, atraumatic, pupils equal and reactive to light and accommodation. Extraocular movements are intact. Neck supple, no lymphadenopathy. LUNG: Clear to auscultation bilaterally. No wheeze or crackles or rhonchi. No increased work in breathing. CV: Regular rate and rhythm. No murmurs rubs or gallops. AFFECT: Alert and oriented to self and place and people. Uncertain what date it is. Conversational and appropriate. - 09/15/17 06:07 09/15/17 07:45 09/15/17 08:30 Temperature 97.9 F 98.6 F Pulse Rate 71 69 Respiratory Rate 16 14 Blood Pressure 133/61 H 110/49 L Pulse Oximetry 98 100 96 Oxygen Delivery Method Room Air Objective Labs Result Diagrams: 09/14/17 13:10 09/14/17 13:10 Labs: Laboratory Results - last 24 hr 09/14/17 09/14/17 13:10 13:10 WBC 8.0 RBC 3.29 L Hgb 11.5 L Hct 33.9 L MCV 102.9 H MCH 34.8 H MCHC 33.8 RDW 17.3 H Plt Count 419 H Neut % (Auto) 68.6 Lymph % (Auto) 12.4 L [place] % (Auto) 10.4 Eos % (Auto) 7.7 H Baso % (Auto) 0.9 Neut # (Auto) 5500 Sodium 135 L Potassium 4.1 Chloride 102 Carbon Dioxide 22 BUN 38 H Creatinine 1.30 H Estimated GFR 52.9 L BUN/Creatinine Ratio 29.2 H Glucose 127 H Calcium 9.3 Total Bilirubin 0.6 AST 32 ALT 31 Alkaline Phosphatase 66 Total Protein 6.3 Albumin 3.5 Globulin 2.8 Albumin/Globulin Ratio 1.3 Assessment & Plan Plan: Assessment/Plan Narrative: 1. Acute metabolic encephalopathy with acute on chronic dementia. - ingestion of Benadryl, Xanax, and other unknown, dramatically improved - suspect agitation secondary to withdrawal of Prozac. - patient not entirely back to baseline at this point although he is getting much better. 2. Congestive heart failure/cardiomegaly/aortic stenosis with aortic regurgitation - continue Lasix, patient is not a candidate for other medications at this point , as he has previously become quite hypotensive on beta blockers and Carlos inhibitor. 3. Rash. - seems to resolve. However will continue Pepcid and Claritin 4. Urinary retention. Which is persistent with a postvoid residual of greater than 300. - Delaney catheter if persists - start Flomax 5. Anorexia of unclear etiology. - suspect may be related to Prozac use, which is why it was stopped. - monitor diet in house - possible recurrence of prostate cancer with PET scan pending. - patient really unable to provide much information. Consider barium swallow 6. Chronic low back pain. - patient has not mentioned today. [employer] is available would like to use this sparingly. 6.1. Significant weight loss. May be related to Prozac use however, this is not entirely clear. Prozac stopped and patient does seem to have improved appetite. Patient has CT scan which demonstrated thickening around the colon at as an outpatient several weeks ago. Awaiting PET scan for follow-up eval of malignancy. Family declines colonoscopy. 6.2. Anemia. Unclear etiology. Will continue to trend. Likely secondary to patient's poor nutrition and weight loss versus malignancy 6.3. Chronic kidney disease. Improving with improved hydration. 7. Admission status: Due to severity of delirium, and potential multiple unknown medication exposures will admit to inpatient. 8. Physical therapy/occupational therapy 9. DVT prophylaxis: Lovenox 10. Code status: DNR 11. Disposition: Patient will certainly require [facility] for rehabilitation.
[2017-09-15] MEDS: TAMSULOSIN 0.4 MG CAPSULE PO (11:00)
--- NOTE | 2017-09-15 13:25 | PC.NURSE ---
Day shift: [address] Delaney by this technical proposal writer. Unable to get to the bladder. Enlarged prostrate may be obstructing. eyeglass maker Sherry is going to attempt to place. Call light in reach. Bed alarm is on. Has been calm and cooperative w/ care.
--- NOTE | 2017-09-15 15:47 | PC.NURSE ---
Patient is A&O to self and , family and president. Patient's family is at his bedside visiting. Patient is cooperative and able to make his needs known to staff when nec. Patient is resting in bed now, states pain in back is 3/10. Skin check done, skin is very reddened but bleachable, barrier cream placed on skin, Di classic drg. applied, encouraging to lye on side, pillow placed behind back and waffle cushion provided. VSS, heart murmur present. Call light w/in reach, bed in low pos. alarm active and door to be left open.
--- NOTE | 2017-09-15 16:29 | PT.IPTN ---
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) Rash and other nonspecific skin eruption (09/14/17) Poisoning by unspecified drugs, medicaments and biological substances, accidental (unintentional), initial encounter (09/14/17) Physical Therapy Treatment Note M2 PT-IP Current Condition Start: 09/14/17 16:43 Freq: Status: Active Protocol: Document 09/14/17 14:10 RCC (Rec: 09/14/17 16:56 RCC [id number]) Physical Therapy Current Condition Current Condition Evaluation Date 09/14/17 Treatment Diagnosis confusion, falls, impaired activity tolerance Onset Date 09/14/17 M3 PT-IP Subjective Start: 09/14/17 16:43 Freq: Status: Active Protocol: Document 09/15/17 15:25 CLB (Rec: 09/15/17 16:29 CLB [id number]) Subjective Physical Therapy Visit Type Type Treatment Note Visit Start Time 15:25 Visit Stop Time 15:43 Total Visit Minutes 18 Number of USER EXPERIENCE LEAD Visits 1 Physical Therapy Visit Comments Patient Comments Pt agreeable to do therapy, once up pt stated he needed to use the toilet to have BM. Therapy Pain Assessment Pain Present Pain Present Denied Pain M4 PT-IP Mobility and Gait Start: 09/14/17 16:43 Freq: Status: Active Protocol: Document 09/15/17 15:25 CLB (Rec: 09/15/17 16:29 CLB [id number]) PT-Bed Mobility Assessment Supine to Sit Supine to Sit Minimal Assistance 1 Person Assistance Head of Bed Elevated Bedrails Sit to Supine Sit to Supine Minimal Assistance 1 Person Assistance Head of Bed Elevated PT-Transfer Assessment Sit to and From Stand Sit to and from Stand Minimal Assistance 1 Person Assistance Use of Upper Extremities Equipment Transfer Assistive Device Gait Belt Front Wheeled Walker Transfers Transfer Destination Bed Toilet Transfer Technique walking Transfer Ability Level of Assist Minimal Assistance 1 Person Assistance Comments Mobility Comments Pt required Min A and VC for sequencing. Gait Assessment Gait Gait Assistance Required: Minimum Assistance Distance (Feet) (feet) 20 Assistive Devices Assistive Device Gait Belt Front Wheeled Walker Gait Deviations General Gait Pattern Decreased Stride Length Decreased Feet Clearance Flexed Trunk Wide Based Gait Factors Limiting Gait Function Factors Limiting Gait Function Decreased Activity Tolerance Decreased Strength Difficulty Following Directions Poor Balance Poor Safety Awareness Comments Gait Comments Pt needs Mod A with FWW and CGA on GB. Pt ambulated to toilet then back to bed. Pt needed cues for approach to toilet/bed. Pt wants to leave walker too soon and pivot without it. PT-Balance Assessment Sitting Balance and Reactions Static Sitting Balance Ability Good Dynamic Sitting Balance Ability Fair Standing Balance and Reactions Static Standing Balance Ability Fair Dynamic Standing Balance Ability Poor Device Used FWW M5 PT-IP Objective Assessments Start: 09/14/17 16:43 Freq: Status: Active Protocol: Document 09/14/17 14:10 RCC (Rec: 09/14/17 16:56 RCC [id number]) Orientation Orientation/Cognition Level of Alertness Confusional State Language Function Ability Hard of Hearing Safety Awareness Decreased Safety Awareness Memory Description Short Term Impaired Group Home Impaired Coordination Assessment Gross Coordination Gross Coordination WNL Assessment Heel on Carrera Test Normal Performance Muscle Tone Muscle Tone WNL Yes M6 PT-IP Treatment Start: 09/14/17 16:43 Freq: Status: Active Protocol: Document 09/14/17 14:10 RCC (Rec: 09/14/17 16:56 RCC [id number]) Physical Therapy Treatment Education Education Provided Safety M7 PT-IP Assessment and Plan Start: 09/14/17 16:43 Freq: Status: Active Protocol: Document 09/15/17 15:25 CLB (Rec: 09/15/17 16:29 CLB [id number]) PT Summary Assessment and Plan Potential Rehabilitation Potential Good Status of Condition at Evaluation Evolving Summary Impairments Strength Balance Cognition Transfers Gait Activity Tolerance Assessment Summary Pt ambulated 10ft x2. Pt requires Mod VC with gait as well as Mod A of walker. Pt able to walk to toilet but after sitting on toilet reported fatigued and needed to return to bed. Goals Bed Mobility Goal Independent Transfer Goal Independent Gait Goal Standby Assistance Front Wheel Walker Gait Distance 150 Other Goals up/down 1 step with FWW and SBA. Days to Meet Goals 3 Frequency of Treatment Frequency Of Treatment Once a Day Treatment Plan Physical Therapy Treatment Plan Bed Mobility Training Transfer Training Gait Training Therapeutic Exercise Balance Retraining Discharge Planning Neuromuscular Re-ed Other Recommendations and Next Treatment gait, step up training when Focus appropriate. Recommendations To Nursing Amount of Assist Needed 1 Person Assist Discharge Recommendations PT Discharge Recommendations Home with Assistance Home Health SNF Rehab Other Discharge Recommendations home with assist and HH vs. SNF Equipment Needed for Home Before FWW Discharge
[2017-09-15] MEDS: SODIUM CHLORIDE 0.9% FLUSH 10 ML IV (21:07)
[2017-09-16] VITALS (10 sets, daily range): BP systolic 109–139; BP diastolic 51–71; PULSE 49–95; RESP 17–20; TEMP 36.2–36.7; O2SAT 93–99; BMI 23.1
[2017-09-16] MEDS: FUROSEMIDE 40 MG TABLET 80 MG PO (08:35)
[2017-09-16] MEDS: DOCUSATE 100 MG CAPSULE PO ×2 (08:35→20:19)
[2017-09-16] MEDS: ENOXAPARIN 40 MG/0.4 ML SYRINGE SUBCUT (08:35)
[2017-09-16] MEDS: TAMSULOSIN 0.4 MG CAPSULE PO (08:36)
[2017-09-16] MEDS: SODIUM CHLORIDE 0.9% FLUSH 10 ML IV ×2 (08:36→20:19)
[2017-09-16 08:58] LABS: Add Manual Diff / Slide Review NO; Basophils Percent Auto 0.6 % (0-2); Eosinophils Percent Auto 10.7 % (2-4); Hemoglobin 12.5 g/dL (13.5-17.5); Lymphocytes Percent Auto 14.3 % (25-40); Mean Corpuscular HGB Conc 33.8 % (30-36); Mean Corpuscular Hemoglobin 34.9 PG (26-34); Mean Corpuscular Volume 103.2 fL (80-100); Monocytes Percent Auto 12.5 % (3-14); Neutrophils Absolute Auto 5200 /uL (3000-5900); Neutrophils Percent Auto 61.9 % (50-75); Platelet Count 463 X10^3/uL (150-400); Red Blood Cell Count 3.58 X10^6/uL (4.5-5.9); Red Cell Distribution Width 17.5 % (11.6-14.8); White Blood Cell Count 8.4 X10^3/uL (4.5-11.0)
[2017-09-16] MEDS: ACETAMINOPHEN 325 MG TABLET 650 MG PO ×2 (09:20→21:47)
--- NOTE | 2017-09-16 09:27 | CM.DPC ---
Records faxed to [facility] for placement per Darlyn
[2017-09-16 09:44] LABS: Alanine Aminotransferase 21 IU/L (21-72); Albumin 3.6 g/dL (3.5-5.0); Albumin Globulin Ratio 1.2 (1.0-2.8); Alkaline Phosphatase 70 U/L (38-126); Aspartate Aminotransferase 19 IU/L (17-59); Bilirubin Total 0.6 mg/dL (0.2-1.3); Blood Urea Nitrogen 35 mg/dL (9-20); Calcium 9.6 mg/dL (8.4-10.2); Carbon Dioxide 25 mmol/L (22-32); Chloride 103 mmol/L (98-107); Estimated Glomerular Filt Rate 48.5 mL/min (>60); Glucose 129 mg/dL (80-110); HEMOLYSIS < 15 (0-50); Potassium 3.9 mmol/L (3.4-5.1); Sodium 138 mmol/L (137-145); Total Protein 6.6 g/dL (6.3-8.2)
--- NOTE | 2017-09-16 10:18 | CM.DPC ---
DCP/continued: Reviewed chart. Spoke briefly with Dr. Duffy this AM. She anticipates that patient will be medically stable for discharge tomorrow 09-17-17. Dr. Duffy spoke with family this AM and decision for SNF has now been changed to first choice [facility]. Met with patient, spouse, and daughter at bedside explained role. Spouse confirms that they have changed SNF first choice is [facility]. Placed call to Rosa at [facility] and she agrees to review for admit tomorrow 09-17-17. RN ENDOCRINOLOGY asked MAURA/Teresita to fax clinical for review. RN ENDOCRINOLOGY plans to meet with family today at approximately 1:00pm to discuss long-term planning. P: [facility] reviewing for admit. [facility] notified that bed no longer needed. EMIGDIO Coburn
--- NOTE | 2017-09-16 10:22 | OT.IP.TRT ---
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) Rash and other nonspecific skin eruption (09/14/17) Poisoning by unspecified drugs, medicaments and biological substances, accidental (unintentional), initial encounter (09/14/17) Occupational Therapy Treatment Note M2 OT-IP Current Condition Start: 09/14/17 15:00 Freq: Status: Active Protocol: Document 09/14/17 02:08 ADH (Rec: 09/14/17 15:17 ADH [id number]) Occupational Therapy Current Condition Current Condition Evaluation Date 09/14/17 Treatment Diagnosis confusion, falls Diagnosis Onset Date 09/14/17 M3 OT- IP Subjective and Pain Start: 09/14/17 15:00 Freq: Status: Active Protocol: Document 09/16/17 10:22 PJM (Rec: 09/16/17 16:41 PJM [id number]) OT- Subjective Occupational Therapy Visit Type Type Treatment Note Visit Start Time 10:05 Visit Stop Time 10:22 Total Visit Minutes 17 Notes Pt up in chair, just finishing with P.T. when therapist arrived. Occupational Therapy Visit Comments Patient Comments I am so tired. When can I go back to bed? Patient/Caregiver Goals to go to bed OT Pain Assessment Pain When Pain Assessed After Treatment Pain Present Pain Present Denied Pain M4 OT- IP ADL's Start: 09/14/17 15:00 Freq: Status: Active Protocol: Document 09/16/17 10:22 PJM (Rec: 09/16/17 16:41 PJ [id number]) OT ADL-Grooming General Evaluation Grooming Ability Contact Guard Assistance Areas Needing Assistance Retrieving/Set-up of Grooming Items Combing/Brushing Hair Face Washing Comments OT Grooming Comments seated in chair due to fatigue OT ADL-Oral Care General Eval Oral Care Ability Contact Guard Assistance Devices Oral Care Devices Toothbrush Comments Oral Care Comments pt stood at sink 4-5 min for denture care OT ADL-Dressing General Eval Lower Body Dressing Ability Standby Assistance Areas Needing Assistance Socks Comments OT Dressing Comments seated in chair M6 OT- IP Functional Cognition Start: 09/14/17 15:00 Freq: Status: Active Protocol: Document 09/16/17 10:22 PJM (Rec: 09/16/17 16:41 PJM [id number]) Cognitive Factors Limiting Selfcare Function Cognitive Ability Level of Alertness Alert Patient Orientation Name Place Attention Span Ability Capable of Focused Attention Ability to Follow Commands Able to Follow One Step Commands Memory Description Short Term Impaired Problem Solving Ability Unable to Identify Errors Needs Assist to Identify Solutions M7 OT- IP Mobility and Balance Start: 09/14/17 15:00 Freq: Status: Active Protocol: Document 09/16/17 10:22 PJM (Rec: 09/16/17 16:41 PJM [email or web address]) OT- Bed Mobility Assessment Sit to Supine Sit to Supine Assist Minimal Assistance OT-Transfer Assessment Sit to and From Stand Sit to and from Stand Contact Guard Assistance Transfers Transfer Ability Contact Guard Assistance 1 Person Assistance Technique Transfer Destination Bed Transfer Technique Stand Step Pivot Devices Transfer Assistive Devices Gait Belt Front Wheeled Walker Comments Mobility Comments pt ambulated 15 feet in room to sink and back OT- Gait Assessment Gait Gait Assistance Required: Contact Guard Assist Assistive Devices Assistive Device Gait Belt Front Wheeled Walker OT- Balance Assessment Sitting Balance and Reactions Static Sitting Balance Ability Good Dynamic Sitting Balance Ability Good Standing Balance and Reactions Static Standing Balance Ability Fair Dynamic Standing Balance Ability Fair Comments Other Balance Tests/Deviations/Treatment leans heavily on sink for oral : care M8 OT- IP Objective Assessments Start: 09/14/17 15:00 Freq: Status: Active Protocol: Document 09/14/17 02:08 ADH (Rec: 09/14/17 15:17 ADH [id number]) OT Gross Range of Motion Upper Extremity Range of Motion Assessment Within Functional Limits OT Strength Upper Extremity Strength Assessment Within Functional Limits OT- Coordination Assessment Upper Extremity Finger Tapping Test Within Functional Limits M9 OT- IP Assessment and Plan Start: 09/14/17 15:00 Freq: Status: Active Protocol: Document 09/16/17 10:22 PJM (Rec: 09/16/17 16:41 PJM [id number]) OT Summary Assessment and Plan Summary OT Impairments Strength Balance Functional Mobility Grooming Dressing Toileting Bathing Toilet Transfers Shower Transfers Progress Towards Goals Slow Progress due to Activity Tolerance Slow Progress due to Cognition Assessment Summary Pt presents with significantly decreased activity tolerance and describes himself as exhausted all the time. Pt unable to complete all grooming tasks in standing and requesting to go back to bed after standing at sink 4-5 min . Per chart notes, pt's , recently had foot surgery, is currently using walker and cannot provide physical assist to pt at home. Pt is not at baseline level of function as he normally requires supervision only with basic self care. Recommend SNF at discharge to increase indep, endurance in basic self care. Goals Grooming Goal Standby Assistance Dressing Goal Standby Assistance Toileting Goal Standby Assistance Bathing Goal Standby Assistance Toilet Transfer Goal Standby Assistance Shower Transfer Goal Standby Assistance OT-Other Goals grooming to be done standing at sink for entire taskl Days to Meet Goals 7 Frequency of Treatment Frequency Of Treatment Once a Day Treatment Plan OT Treatment Plan ADL Training Functional Mobility Patient/Family Education Discharge Planning Discharge Recommendations OT Discharge Recommendations SNF Rehab Home Equipment Needs to be determined in next rehab setting
--- NOTE | 2017-09-16 10:25 | PT.IPTN ---
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) Rash and other nonspecific skin eruption (09/14/17) Poisoning by unspecified drugs, medicaments and biological substances, accidental (unintentional), initial encounter (09/14/17) Physical Therapy Treatment Note M2 PT-IP Current Condition Start: 09/14/17 16:43 Freq: Status: Active Protocol: Document 09/16/17 10:15 TMS (Rec: 09/16/17 10:24 TMS [id number]) Physical Therapy Current Condition Current Condition Evaluation Date 09/14/17 Treatment Diagnosis confusion, falls, impaired activity tolerance Onset Date 09/14/17 M3 PT-IP Subjective Start: 09/14/17 16:43 Freq: Status: Active Protocol: Document 09/16/17 10:15 TMS (Rec: 09/16/17 10:24 TMS [id number]) Subjective Physical Therapy Visit Type Type Treatment Note Visit Start Time 09:50 Visit Stop Time 10:10 Total Visit Minutes 20 Number of SPECIALIST WOUND CARE Visits 2 Physical Therapy Visit Comments Patient Comments Pt. plesant, agreeable to walk . Requested to use B.R. Therapy Pain Assessment Pain Present Pain Present Denied Pain M4 PT-IP Mobility and Gait Start: 09/14/17 16:43 Freq: Status: Active Protocol: Document 09/16/17 10:15 TMS (Rec: 09/16/17 10:24 TMS [id number]) PT-Bed Mobility Assessment Supine to Sit Supine to Sit Moderate Assistance 1 Person Assistance Head of Bed Elevated Bedrails Scooting Scooting to Edge of Bed Standby Assistance PT-Transfer Assessment Sit to and From Stand Sit to and from Stand Minimal Assistance 1 Person Assistance Use of Upper Extremities Equipment Transfer Assistive Device Gait Belt Front Wheeled Walker Transfer Ability Level of Assist Minimal Assistance 1 Person Assistance Comments Mobility Comments Pt. needs cues for hand placement with sit<>stand. Gait Assessment Gait Gait Assistance Required: Minimum Assistance Distance (Feet) (feet) 30 Assistive Devices Assistive Device Gait Belt Front Wheeled Walker Gait Deviations General Gait Pattern Decreased Stride Length Decreased Feet Clearance Flexed Trunk Wide Based Gait Factors Limiting Gait Function Factors Limiting Gait Function Decreased Activity Tolerance Decreased Strength Difficulty Following Directions Poor Balance Poor Safety Awareness Comments Gait Comments Pt. walked to B.R. initially, (no B.M.). Then walked 20 ft. with FWW/cues/min-A. Cues to avoid abandoning walker, fatigued very quickly. Pt. sat in chair after gait in care of O.T. M5 PT-IP Objective Assessments Start: 09/14/17 16:43 Freq: Status: Active Protocol: Document 09/14/17 14:10 RCC (Rec: 09/14/17 16:56 RCC [id number]) Orientation Orientation/Cognition Level of Alertness Confusional State Language Function Ability Hard of Hearing Safety Awareness Decreased Safety Awareness Memory Description Short Term Impaired Half-Way Impaired Coordination Assessment Gross Coordination Gross Coordination WNL Assessment Heel on Carrera Test Normal Performance Muscle Tone Muscle Tone WNL Yes M6 PT-IP Treatment Start: 09/14/17 16:43 Freq: Status: Active Protocol: Document 09/14/17 14:10 RCC (Rec: 09/14/17 16:56 RCC [id number]) Physical Therapy Treatment Education Education Provided Safety M7 PT-IP Assessment and Plan Start: 09/14/17 16:43 Freq: Status: Active Protocol: Document 09/16/17 10:15 TMS (Rec: 09/16/17 10:24 TMS [id number]) PT Summary Assessment and Plan Summary Assessment Summary Recommend pt. go to SNF rehab before returning home secondary he still needs Mod-A with bed mobility, poor safety awareness and poor endurance. Frequency of Treatment Frequency Of Treatment Once a Day Treatment Plan Physical Therapy Treatment Plan Bed Mobility Training Transfer Training Gait Training Therapeutic Exercise Balance Retraining Discharge Planning Neuromuscular Re-ed Recommendations To Nursing Amount of Assist Needed 1 Person Assist Discharge Recommendations PT Discharge Recommendations SNF Rehab
--- NOTE | 2017-09-16 11:24 | ST.IPIE ---
Visit Care Team Role Provider Type Florian Duarte DO Emergency Provider Physician Specialty: Emergency Medicine Address: [address] [place] [address], [id number] Email: [email or web address] Gayle Duffy MD Admit Provider Physician Attending Provider Family Provider Primary Care Provider Specialty: Family Practice Address: [address] [place] [address], [id number] Email: [email or web address] 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) Rash and other nonspecific skin eruption (09/14/17) Poisoning by unspecified drugs, medicaments and biological substances, accidental (unintentional), initial encounter (09/14/17) Past Medical History (Last Reviewed 09/14/17 @ 10:52 by Gayle Duffy MD) Aortic regurgitation (Chronic Medical) Aortic stenosis (Chronic Medical) RBBB ok EKG Back pain (Chronic Medical) Bicuspid aortic valve (Chronic Medical) Dementia (Chronic Medical) RBBB (Chronic Medical) on EKG Radiculopathy with lower extremity symptoms (Chronic Medical) lateral Spine pain, lumbosacral (Chronic Medical) DVT (deep venous thrombosis) (Resolved Medical 2010) Prostate cancer (Resolved Medical 2010) ST IP Initial Evaulation Report [employer]HEAD [employer]EM[employer] Clinical Swallow Evaluation Start: 09/16/17 09:14 Freq: Status: Active Protocol: Document 09/16/17 09:14 JUNIOR (Rec: 09/16/17 09:32 JUNIOR [id number]) Clinical Swallow Evaluation Session Time Visit Start Time 08:45 Visit Stop Time 09:15 Total Visit Minutes 30 Referral Reason for Referral Decreased food consumption with associated weight loss Setting Assessment Location Acute Care Patient Information Identification Type Name History 82 yr-old male with acute metabolic encephalopathy and chronic dementia. The pt has lost ~60 lbs within the last 6 wks. He has declined much food and has increasingly spat out foods that do not taste good to him. The family feels his taste buds have changed as a result of medication and dementia progression. Since coming to the hospital, it appears his appetite has increased, per pt, family, and Nsg reports. Subjective Observations The pt was awake and reading the newspaper in bed upon OVERHEAD FOREMAN' s arrival. He was conversant and making appropriate jokes, agreeable to swallow trials. He was able to boost himself up in his bed with Nsg's verbal guidance. Evaluation Liquids Trialed Thin Solids Trialed Dysphagia Advanced Mechanical Soft Regular Administration Type Straw Oral Impairment WFL Oral Strategies Upright at 90 degrees Oral Phase Comments Oral Motor Exam: Mild left side facial droop. Labial, lingual, buccal, and velar ROM , strength and coordination all WFL. Pt wears full upper dentures and reports the fit well. He has natural lower teeth in good condition for his age. Hyolaryngeal elevation WFL, reduced anterior movement. Oral phase WFL. Good oral containment of liquids; occasional anterior spillage of solids when pt was talking. He immediately sensed crumbs on lips and self-managed with napkin. Extended mastication observed with meats but mastication is WFL. Bolus formation, AP propulsion, and swallow trigger all WNL. Minimal oral residue present but managed well by pt with additional swallow and/or liquid wash. The pt did spit out 2 boluses (toast, hashbrowns) d/t dislike of taste. Pharyngeal Impairment WNL Pharyngeal Strategies Sitting Upright (90 deg) Small Bites and Sips Pharyngeal Phase Comments No overt s/sx of aspiration observed with all trials, including thin liquid from straw in consecutive sips. He maintained a clear voice throughout and had no complaints. Findings Impressions Pt presents with swallow WFL. Occasional extended mastication present with meat prompts consideration of mechanical soft texture; however, family expressed concern that modification of diet may result in decreased intake. This seems reasonable. Therefore, will continue with regular diet texture with recommendation of small bites to reduce mastication time and effort and increase enjoyment of intake. Education was provided to pt/ family RE recommendations and s/sx of dysphagia. They were encouraged to seek OVERHEAD FOREMAN assistance after hospital discharge if symptoms emerge. They verbalized understanding and were in agreement. Diet Recommendations Liquids Order Thin Diet Order Regular Medication Recommendations As Tolerated Aspiration Precautions Recommended Precautions Upright at 90 Degrees Small Bites/Sips Treatment Plan Appropriate for Therapy No: Pt will be discharged from ST services.
--- NOTE | 2017-09-16 13:59 | PM.PN.1 ---
Subjective Date Patient Seen: 09/16/17 Time Patient Seen: 08:00 Interval history: Patient continues to be a little confused even beyond baseline. Does not have his hearing aids in today. He has been able to get up and ambulate in the hallways. Appetite has improved somewhat per nursing yesterday. Unclear if this may be related to the stopping of the Prozac or other findings. Nevertheless, the social work as discussed with family possible placement. It is not clear that the patient understands implications. Patient had significant urinary retention and a Delaney catheter was placed with expectation that this will be removed. Patient was also started on tamsulosin yesterday. Exam Vital Signs (past 8 hours): GENERAL: Well-developed well-nourished man in no acute distress. HEENT: Normocephalic, atraumatic, pupils equal and reactive to light and accommodation. Extraocular movements are intact. LUNG: Clear to auscultation bilaterally. No wheeze or crackles or rhonchi. No increased work in breathing. CV: Regular rate and rhythm. No 3/6 systolic ejection murmer AFFECT: Conversational and appropriate. Alert to himself and family members. Unaware of the date. - 09/16/17 08:00 09/16/17 08:17 Temperature 97.1 F L Pulse Rate 88 Respiratory Rate 18 Blood Pressure 130/51 H Pulse Oximetry 99 96 Oxygen Delivery Method Room Air Objective Labs Result Diagrams: 09/16/17 08:17 09/16/17 08:17 Labs: Laboratory Results - last 24 hr 09/16/17 09/16/17 08:17 08:17 WBC 8.4 RBC 3.58 L Hgb 12.5 L Hct 37.0 L MCV 103.2 H MCH 34.9 H MCHC 33.8 RDW 17.5 H Plt Count 463 H Neut % (Auto) 61.9 Lymph % (Auto) 14.3 L Daggett % (Auto) 12.5 Eos % (Auto) 10.7 H Baso % (Auto) 0.6 Neut # (Auto) 5200 Sodium 138 Potassium 3.9 Chloride 103 Carbon Dioxide 25 BUN 35 H Creatinine 1.40 H Estimated GFR 48.5 L BUN/Creatinine Ratio 25.0 H Glucose 129 H Calcium 9.6 Total Bilirubin 0.6 AST 19 ALT 21 Alkaline Phosphatase 70 Total Protein 6.6 Albumin 3.6 Globulin 3.0 Albumin/Globulin Ratio 1.2 Assessment & Plan Plan: Assessment/Plan Narrative: 1. Acute metabolic encephalopathy with acute on chronic dementia. - ingestion of Benadryl, Xanax, and other unknown, dramatically improved 2. Congestive heart failure/cardiomegaly/aortic stenosis with aortic regurgitation - continue Lasix, patient is not a candidate for other medications at this point, as he has previously become quite hypotensive on beta blockers and Carlos inhibitor. 3. Rash. Patient has a mild eosinophilia of unclear etiology. May be related to this rash or exposure. Rash is certainly not worsening. Continue to follow. 4. Urinary retention. - Delaney catheter - day 2. - Flomax, which is a new prescription 5. Anorexia of unclear etiology. - suspect may be related to Prozac use, which is why it was stopped. - monitor diet in house - possible recurrence of prostate cancer with PET scan pending. - patient really unable to provide much information. Consider barium swallow 6. Chronic low back pain. - patient has not mentioned today. Planday is available would like to use this sparingly. 6.1. Significant weight loss. May be related to Prozac use however, this is not entirely clear. Prozac stopped and patient does seem to have improved appetite. Patient has CT scan which demonstrated thickening around the colon at as an outpatient several weeks ago. Awaiting PET scan for follow-up eval of malignancy. Family declines colonoscopy. 6.2. Anemia. Unclear etiology. Will continue to trend. Likely secondary to patient's poor nutrition and weight loss versus malignancy. Will initiate a multivitamin 6.3. Chronic kidney disease. Likely at baseline. 7. Admission status: Due to severity of delirium, and potential multiple unknown medication exposures will admit to inpatient. 8. Physical therapy/occupational therapy 9. DVT prophylaxis: Lovenox 10. Code status: DNR 11. Disposition: Patient will certainly require residential for rehabilitation. Family meeting today for disposition.
--- NOTE | 2017-09-16 16:50 | CM.DPC ---
Addendum entered by Darlyn Schmid 09/16/17 17:00: hospice. Family also have residential care application started and plan to have completed by 09-17-17. P: [facility] reviewing for acceptance. Family encouraged to pick back up SNF in case [facility] unable to accept. EMIGDIO Coburn Original Note: DCP/continued: Reviewed chart. Met with spouse and family today at approximately 1:30pm. It is anticipated that patient will be medically stable to d/c to SNF tomorrow 09-17-17. [facility] choice [facility]. [facility] called to check on whether or not they can accept. Rosa reports that they are still reviewing. [facility] requested that family/spouse review SNF list and pick second and third choice if needed. Family plan to review list and get back to [facility]. In addition, discussed patient's goals of care and if patient does not show any rehab improvement family interested in patient coming home on [facility]
--- NOTE | 2017-09-16 21:33 | PC.NURSE ---
Pt has had relatively uneventful evening. Assisted several times to the BR w/o incidence. HL in tact/patent. Denies any discomfort. As evening progressed, increased in evident. Call light w/in reach, bed alarm on fpor pt safety. Continue w/plan of care.
[2017-09-17 01:41] VITALS: BP 126/65; PULSE 89; RESP 18; TEMP 36.4; O2SAT 97
[2017-09-17 06:44] LABS: Hematocrit 34.1 % (41-53); Hemoglobin 11.4 g/dL (13.5-17.5); Mean Corpuscular HGB Conc 33.5 % (30-36); Mean Corpuscular Hemoglobin 34.9 PG (26-34); Mean Corpuscular Volume 104.1 fL (80-100); Platelet Count 386 X10^3/uL (150-400); Red Blood Cell Count 3.28 X10^6/uL (4.5-5.9); Red Cell Distribution Width 17.2 % (11.6-14.8); White Blood Cell Count 9.1 X10^3/uL (4.5-11.0)
[2017-09-17 06:47] VITALS: BP 105/56; PULSE 76; RESP 18; TEMP 36.4; O2SAT 94
[2017-09-17 07:31] LABS: Neutrophils Absolute Manual 6279 /uL (3000-5900); Total Cells Counted 100
[2017-09-17 07:33] LABS: Anisocytosis 1+
[2017-09-17 07:43] VITALS: O2SAT 97
[2017-09-17 07:59] VITALS: BP 117/60; PULSE 78; RESP 17; TEMP 36.4; O2SAT 96
[2017-09-17] MEDS: ACETAMINOPHEN 325 MG TABLET 650 MG PO ×2 (08:52→11:46)
[2017-09-17] MEDS: FUROSEMIDE 40 MG TABLET 80 MG PO (08:54)
[2017-09-17] MEDS: TAMSULOSIN 0.4 MG CAPSULE PO (08:54)
[2017-09-17] MEDS: MULTIVITAMIN 1 TABLET 1 TAB PO (08:54)
[2017-09-17] MEDS: ENOXAPARIN 40 MG/0.4 ML SYRINGE SUBCUT (08:54)
[2017-09-17] MEDS: DOCUSATE 100 MG CAPSULE PO (08:54)
[2017-09-17] MEDS: SODIUM CHLORIDE 0.9% FLUSH 10 ML IV (08:55)
--- NOTE | 2017-09-17 10:43 | CM.DPC ---
DCP/continued: Received notification from Dr. Duffy that patient is medically stable for d/c today. [employer] confirmed with family that first SNF choice is [facility]. Placed call to Denita at [facility] and she confirms acceptance. Asked MAURA/Teresita to fax discharge packet to [facility] including [facility]. Spoke with patient's spouse/Romina and she confirms d/c to [facility] today. Patient scheduled to be picked up at approximately 11:30am. Important Message from Medicare discussed with spouse and she gave [employer]STITUTE [employer] DRIVER to sign on her behalf. P: [facility] today. [facility] aware that family working on Medicaid long-term application and are open to hospice if needed. EMIGDIO Coburn
[2017-09-17 11:00] VITALS: BP 137/55; PULSE 129; RESP 16; TEMP 36.4; O2SAT 95
--- NOTE | 2017-09-17 12:13 | PC.NURSE ---
Day shift: Pt left unit at approx 1215 with cabulance person and family members. He has all personal belongings. [facility] person has d/c packet. Report attempted to be called at this time but [facility] staff did not answer telephone. Medicated w/ 650mg Tylenol just prior to his leaving.
--- NOTE | 2017-09-17 16:51 | P.DS_ITS ---
History of Present Illness Chief complaint: Weakness, GLF Narrative: Patient is an 82-year-old gentleman well known to me with a history of dementia which has been progressive, and bicuspid aortic valve with aortic regurgitation resulting in cardiomyopathy and congestive heart failure who presented to the emergency room yesterday after family reported that he had been increasingly agitated. Family, prior to presentation had given him 3 Benadryl for a rash as well as 1 Xanax unknown dosing. Patient is not prescribed the Xanax, nevertheless, upon presentation he was unable to stand and was speaking in garbled speech. In addition, patient has lost about 60 lb over the last 6 weeks for unclear reasons. Patient describes feeling nauseous. Reports that occasionally he is able to eat, but has to spit the food out for unclear reasons. Interestingly, he has been able to drink liquids and has been able to maintain hydration despite Lasix 80 mg daily. Patient canela CT abdomen and pelvis in late August of 2017 which demonstrated some thickening around the cecum, but no clear mass, and plans are in place for him to have a PET scan. Patient did have a history of prostate cancer, with radioactive seed placement. Patient's PSA is elevated above baseline by nearly double at this point from 2016. Patient also has dementia, and is unclear what the patients baseline is at this point. However, we were tapering Prozac from 20 mg to 10 mg and Prozac was stopped 2 days ago. Family reports he was increasingly agitated and somehow different when he awoke yesterday, and the family administered the Xanax. Patient also developed a rash of unclear etiology, but it appears that he has not been bathing regularly due to deconditioning. In addition, patient has been permitted to take his medications such as Tylenol. Due to his underlying dementia, it is difficult to know what exactly he has been taking and what amounts. Patient has ongoing low back pain and does have [place] as well as tramadol but it is unclear if he is even taking this. Family was only able to provide limited information. No evidence of fever or chills. Family reports that he has not vomited in the last few days. Discharge Providers Date of admission: 09/14/17 00:28 Primary care physician: Gyale Duffy MD Consults: 09/14/17 01:26 Consult to Dietitian, Adult Routine Comment: Reason For Exam: wt loss of 40 lbs, dec appetite- food disgusts him 09/14/17 10:17 Consult to Dietitian, Adult Routine Comment: Reason For Exam: 50 pounds of weight loss-recent and unintentional. 09/14/17 11:27 Consult to Physical Therapy Evaluate & Treat Comment: Weakness Physician Instructions: Evaluate and Treat 09/14/17 11:28 Consult to Occupational Therapy Evaluate & Treat Comment: Weakness,transfer problem, poss SNF Physician Instructions: Evaluate and treat Consult to Speech Therapy Evaluate & Treat Comment: Dysphagia - spitting out food Physician Instructions: Evaluate and treat Discharge provider: Gayle Duffy MD Summary Discharge Diagnosis: Aortic stenosis/incompetence with bicuspid valve with global cardiomegaly Congestive heart failure from the above, chronic, no exacerbation Dementia, Alzheimer's type Accidental overdose diphenhydramine and alprazolam Chronic weakness Anorexia and weight loss with no evidence of malnutrition Urinary retention, with insertion of Delaney catheter during this admission, not anticipated to be long-term History of prostate cancer status post radioactive seeding Hospital Course: Patient was admitted to the hospital initially due to side effects of 75 mg of Benadryl due to a rash. On hospital day 2., family notify this provider that they did give him a low dose alprazolam prior to him falling due to his agitation. In addition, 2 days prior to admission, was recommended that patient stop Prozac and had completed the taper. Family reports that they did give him the Xanax secondary to the agitation likely due to the above. Regarding patient's mental status, over the course of his hospital stay his mentation improved quite substantially. However, was certainly not normal, but his baseline. Over the course of the last several months patient lost about 60 lb. While hospitalized, patient did eat most of his meals. Suspect that weight loss was secondary to Prozac although this cannot be certain. There was no clear evidence of malnutrition with a normal albumin, and remaining within a normal body mass index. Nevertheless, prior to presentation well as an outpatient, he was identified as having a thickening around his colon and a PET scan is planned as an outpatient. Patient was also noted to have significant urinary retention with postvoid residuals greater than 300. This happened several times and a Delaney catheter was placed and tamsulosin 0.4 mg was initiated. Physical therapy saw the patient during this hospitalization felt that he would be a good candidate for skilled rehabilitation, and I would agree with the above. Patient was discharged long term on the medications below. He will require follow-up for a PET scan. Congestive heart failure and complications of severe valvular disease did not play a role in this admission, patient remained on 80 mg of Lasix. Status at Discharge Functional status at discharge: uses cane/walker Overall status at discharge: patient is progressing back to baseline Time Spent with Patient Greater than 30 minutes Exam Vital Signs (past 8 hours): - 09/17/17 11:00 Temperature 97.6 F Pulse Rate 129 H Respiratory Rate 16 Blood Pressure 137/55 H Pulse Oximetry 95 Oxygen Delivery Method Room Air Oxygen Flow Rate 0 Objective Labs Result Diagrams: 09/17/17 06:10 09/16/17 08:17 Labs: Laboratory Results - last 24 hr 09/17/17 06:10 WBC 9.1 RBC 3.28 L Hgb 11.4 L Hct 34.1 L MCV 104.1 H MCH 34.9 H MCHC 33.5 RDW 17.2 H Plt Count 386 Total Counted 100 Seg Neutrophils % 69.0 Lymphocytes % (Manual) 12.0 L Monocytes % (Manual) 8.0 Eosinophils % (Manual) 10.0 H Basophils % (Manual) 1.0 Neutrophils # (Manual) 6279 H RBC Morphology Not Reportable Anisocytosis 1+ H Discharge Plan Discharge Plan Patient Disposition: SNF Transfer to: [facility] Under care of provider: Rishi Transportation: Private vehicle Consult as needed: Dental, Hearing, Mental health, Podiatry and Vision I certify the postop hospital long term care is medically necessary on a continuing basis for any conditions for which he/ she received care during this hospitalization.: Yes The receiving facility has agreed to accept transfer and provide medical treatment.: Yes Discharge Health Status Multidrug resistant organism: No MDRO MDRO Verified by culture: No Date verified: 09/17/17 Precautions: [place] Provider Discharge Instructions Diet: Diet as Tolerated Liquid consistency: Normal/Thin Food texture: Regular Catheter: 2-way Delaney Catheter comment: Voiding trial in next 1-2 days, put in d/t urinary retention at this stay [facility] Reason for rehabilitation: Recovery r/t decondition Rehab type: Physical therapy, Occupational therapy, Speech therapy and Outpatient therapists Discharge Data Primary Care Provider: Gayle Duffy Attending Provider: Gayle Duffy Admit Date/Time: 09/14/17 00:28 Discharges patient from system. Discharge Date/Time: 09/17/17 12:11
== END 2017-09-17 12:11 | DRG 917 ==
LOC: ED 21:14 → AC 09-14 00:34
PROVIDERS: Admitting Provider Family Medicine; Emergency Provider Emergency Medicine; Family Provider Family Medicine; PCP Family Medicine; Visit Provider Family Medicine
DX: T45.0X1A Poisoning by antiallergic and antiemetic drugs, accidental (unintentional), initial encounter (principal); G92 Toxic encephalopathy; Q23.1 Congenital insufficiency of aortic valve; I42.9 Cardiomyopathy, unspecified; T42.4X1A Poisoning by benzodiazepines, accidental (unintentional), initial encounter; F03.90 Unspecified dementia, unspecified severity, without behavioral disturbance, psychotic disturbance, mood disturbance, and anxiety; I35.1 Nonrheumatic aortic (valve) insufficiency; M54.9 Dorsalgia, unspecified; G89.29 Other chronic pain; R21 Rash and other nonspecific skin eruption; R33.9 Retention of urine, unspecified; Z87.891 Personal history of nicotine dependence; Z85.46 Personal history of malignant neoplasm of prostate; Z66 Do not resuscitate; R63.0 Anorexia; Z68.23 Body mass index [BMI] 23.0-23.9, adult; R63.4 Abnormal weight loss; I50.9 Heart failure, unspecified
CPT/HCPCS: 36415; 36591; 70450; 74019; 80048; 80053; 82962; 83690; 85025; 85610; 85730; 92610; 93005; 96360; 96361; 97162; 97165; 97530; 97535; 99283; 99285; G0103; J1650